=== PATIENT | female | born 1950 | race Caucasian/White ===

== ENCOUNTER 2019-08-13 15:56 | Inpatient (IN) ==
[2019-08-13] MEDS ORDERED: ONDANSETRON INJ 2 MG/ML 2 ML VIAL IV STA (16:58)
[2019-08-13] MEDS ORDERED: MoRPHine SULFATE 4 MG/ML 1 ML CARP\\VIAL IV STA (16:58)
[2019-08-13 17:28] LABS: iSTAT Creatinine 0.9 mg/dl (0.6-1.3); iSTAT Hemoglobin 12.2 g/dl (12.0-16.0); iSTAT Ionized Calcium 1.02 mmol/l (1.12-1.32); iSTAT Potassium 4.3 mEq/L (3.3-5.0)
[2019-08-13 17:29] LABS: Basophils # (auto) 0.07 K/uL (0-0.2); Basophils % (auto) 0.8 %; Eosinophils % (auto) 2.2 %; Hematocrit (blood only) 34.7 % (37-47); Immature Granulocytes # (auto) 0.04 K/uL (0.00-0.02); Immature Granulocytes % (auto) 0.4 %; Lymphocytes # (auto) 1.35 K/uL (1.2-3.4); Mean Corpuscular Hemoglobin 30.9 pg (25-34); Mean Corpuscular Hgb Conc 34.6 g/dL (32-36); Mean Corpuscular Volume 89.4 fL (80-100); Mean Platelet Volume 8.8 fL (7.4-10.4); Monocytes # (auto) 0.98 K/uL (0.11-0.59); Monocytes % (auto) 10.9 %; Neutrophils # (auto) 6.38 K/uL (1.4-6.5); Neutrophils % (auto) 70.7 %; Platelet Count 622 K/uL (130-400); RDW Coefficient of Variation 14.8 % (11.5-14.5); RDW Standard Deviation 48.3 fL (36.4-46.3); Red Blood Count 3.88 M/uL (4.2-5.4); White Blood Count 9.02 K/uL (4.8-10.8)
[2019-08-13 17:49] LABS: Alanine Aminotransferase 22 U/L (12-78); Albumin Level 3.2 gm/dl (3.4-5.0); Aspartate Aminotransferase 26 U/L (15-37); Blood Urea Nitrogen 18 mg/dl (7-18); Calcium 10.2 mg/dl (8.5-10.1); Carbon Dioxide 25 mmol/L (21-32); Chloride 102 mmol/L (98-107); Est GFR (African American) 66.6; Est GFR (Non-African American) 57.4; Glucose 82 mg/dl (70-99); Lipase 198 U/L (73-393); Potassium 4.2 mmol/L (3.5-5.1); Sodium 135 mmol/L (136-145)
[2019-08-13 17:51] LABS: Albumin Globulin Ratio 0.7 (0.9-2); Alkaline Phosphatase 227 U/L (45-117); Bilirubin,Total 0.5 mg/dl (0.2-1); Globulin 4.6 gm/dl (2.5-4.0); Total Protein 7.8 gm/dl (6.4-8.2)
[2019-08-13] MEDS ORDERED: IOVERSOL 100ml IV PRN (18:01)
--- NOTE | 2019-08-13 18:20 | CT Scan Report ---
CT SCAN OF THE LEFT TIBIA AND FIBULA WITH IV CONTRAST CLINICAL HISTORY: Left leg pain and swelling. Clinical concern for abscess. COMPARISON STUDY: No priors. TECHNIQUE: Following the IV administration of 92 cc of Optiray 320, CT scan of the left tibia and fib tylor is performed from the knee joint to the ankle. Images are reviewed in the axial, sagittal, and co yovany planes. IV contrast was administered without complication. A dose lowering technique was utiliz ed adhering to the principles of ALARA. CT DOSE: 272.05 mGy.cm FINDINGS: The skeletal structures are osteopenic. There is no evidence of tibial or fibular fracture. No bony erosion or periostitis is identified. The knee and ankle joints appear maintained noting deg enerative change. There is a knee joint effusion. There is diffuse soft tissue edema and trace subcut aneous fluid present throughout the left calf. No organized fluid collection is seen to indicate absc ess. No subcutaneous gas is seen. The Achilles tendon appears intact. A popliteal cyst measures up to 4.5 cm. The regional musculature is normal in appearance. The visualized left lower extremity arteri es are patent. IMPRESSION: 1. No acute bony abnormality is identified involving the left tibia or fibula. 2. There is diffuse soft tissue edema throughout the left lower extremity. Correlate clinically for e vidence of cellulitis. 3. No organized fluid collection is seen to indicate abscess. 4. Knee joint effusion and popliteal cyst. Electronically signed by: Bayron Dash M.D. 08/13/2019 6:18 PM
[2019-08-13] MEDS ORDERED: DAPTOmycin 300 MG in SYRINGE 0 ML IV STA (18:21)
[2019-08-13] MEDS ORDERED: MoRPHine SULFATE 2 MG/ML CARP IV STA (20:19)
--- NOTE | 2019-08-13 23:10 | History & Physical Report ---
Date of Service August 13, 2019 Assessment & Plan (1) Cellulitis of left leg: Admit IV daptomycin Infectious diseases consult cold compress prn left lower leg. DVT prophylaxis = Lovenox, held SCDs due to painful area on lower leg. (2) Failure of outpatient treatment: Did have IV Zosyn and IV Vanco at outlying hospital has been taking oral Clindamycin. (3) Immunocompromised patient: Patient takes Arava and Benlysta (4) Lupus (systemic lupus erythematosus): (5) HTN (hypertension): Continue triamterene/HCTZ (6) Duodenal ulcer: Continue pantoprazole Regular diet ordered. History of Present Illness 69 y/o female presented to the ED with left lower leg pain and redness. She reports that a week prior, she was admitted to [facility] with epigastric pain and also LLE cellulitis. She was found to have multiple duodenal ulcers and was started on pantoprazole (to which she has already noticed improvement). The cellulitis was, according to daughter, treated with IV Zosyn and IV Vanco. Upon discharge, the patient noted improved swelling and pain in the leg, but not improvement in redness. She was treated as outpatient with clindamycin and has noticed even further increase and erythema and sharp stabbing/burning pain. No F/C, cough, SOB, chest pain, N/V, or lightheadedness. She does have chronic intermittent loose stools to which there has been no change. Primary Care Provider: Kanika Bernard Allergies Allergy/AdvReac Type Severity Reaction Status Date / Time Sulfa (Sulfonamide Allergy Severe Rash and Unverified 08/13/19 17:58 Antibiotics) extremity swelling codeine AdvReac Severe Nausea Unverified 08/13/19 17:59 adhesive AdvReac Intermediate Rash Unverified 08/13/19 17:59 Home Medications Home Medications Medication Instructions Recorded Confirmed Type Medical Marijuana 1 tab SUBLINGUAL DAILY PRN 08/13/19 08/13/19 History flwjhji-nwgdtgfeoxpls-shffbsrm 2 tab PO Q6H PRN 08/13/19 08/13/19 History [Excedrin Migraine] belimumab [Benlysta] 0 mg SUBCUT Q4WK 08/13/19 08/13/19 History calcium carbonate-vitamin D3 1 tab PO QAM 08/13/19 08/13/19 History [Calcium 600 + D(3)] clindamycin HCl 300 mg PO TID 08/13/19 08/13/19 History duloxetine 60 mg PO QAM 08/13/19 08/13/19 History folic acid 3 mg PO QAM 08/13/19 08/13/19 History leflunomide [Arava] 20 mg PO QAM 08/13/19 08/13/19 History melatonin 10 mg PO HS 08/13/19 08/13/19 History ndpimwff-fzg-iyzq-FA-lutein 1 tab PO DAILY 08/13/19 08/13/19 History [Centrum Silver Women] pantoprazole 40 mg PO QAM 08/13/19 08/13/19 History potassium chloride 20 meq PO TID 08/13/19 08/13/19 History triamterene-hydrochlorothiazid 1 cap PO QAM 08/13/19 08/13/19 History Past Med/Surg History Medical History Basal cell carcinoma Duodenal ulcer disease HTN (hypertension) Lupus Squamous cell skin cancer Surgical History History of skin surgery Family History Other No pertinent family history Social History Feels Safe at Home: Yes Smoking Status: Former smoker Review of Systems Review of Systems: Constitutional- no fever; no weight loss Eyes- no acute visual changes ENT- no sinus drainage; no pharyngitis Pulmonary- no cough, no wheezing, no shortness of breath Cardiac- no chest pain, no palpitations, no orthopnea, no dependent edema GI- As in HPI - no dysuria, no hematuria Musculoskeletal- no arthralgias, no myalgias Derm- no rashes, + diffuse itching which she felt is from antibiotic. Hematologic- no unusual bruising, no unusual bleeding Lymphatics- no adenopathy Endocrine- no polyuria or polydipsia; no heat or cold intolerance Neuro- no headaches, no focal neurologic symptoms Psych- no anxiety, no depression Physical Exam Physical Exam: General- adult female, NAD Head- atraumatic Eyes- PERRL, EOMI, anicteric ENT- oropharynx clear Neck- supple, no JVD, no adenopathy, no thyromegaly. Lungs- CTA b/l no R/R/W Heart- regular rhythm; no murmur, no gallop, no rub appreciated Abdomen- normal bowel sounds, soft, nontender. Extremities- no pretibial edema, erythema of the left lower leg between knee and over ankle. + blistering, No open areas. tender to touch. 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 Skin- warm & dry, except for left lower leg as in EXt. Results & Data Vital Signs (Past 12 Hours) Vital Signs Temp Pulse Pulse Resp BP BP Pulse Ox 08/13/19 21:17 88 18 118/75 97 08/13/19 20:26 82 20 95 08/13/19 18:56 80 18 123/67 98 08/13/19 17:12 75 16 148/61 H 100 08/13/19 16:13 36.7 C 88 20 106/67 96 Laboratory Results Laboratory Results WBC 9.02 K/uL (4.8-10.8) 08/13/19 17:19 RBC 3.88 M/uL (4.2-5.4) L 08/13/19 17:19 Hgb 12.0 g/dL (12.0-16.0) 08/13/19 17:19 POC Hgb 12.2 g/dl (12.0-16.0) 08/13/19 17:16 Hct 34.7 % (37-47) L 08/13/19 17:19 POC Hct 36 % (37-47) L 08/13/19 17:16 MCV 89.4 fL (80-100) 08/13/19 17:19 MCH 30.9 pg (25-34) 08/13/19 17:19 MCHC 34.6 g/dL (32-36) 08/13/19 17:19 RDW Std Deviation 48.3 fL (36.4-46.3) H 08/13/19 17:19 RDW Coeff of Micheline 14.8 % (11.5-14.5) H 08/13/19 17:19 Plt Count 622 K/uL (130-400) H 08/13/19 17:19 MPV 8.8 fL (7.4-10.4) 08/13/19 17:19 Immature Gran % (Auto) 0.4 % 08/13/19 17:19 Neut % (Auto) 70.7 % 08/13/19 17:19 Lymph % (Auto) 15.0 % 08/13/19 17:19 Nance % (Auto) 10.9 % 08/13/19 17:19 Eos % (Auto) 2.2 % 08/13/19 17:19 Baso % (Auto) 0.8 % 08/13/19 17:19 Immature Gran # (Auto) 0.04 K/uL (0.00-0.02) H 08/13/19 17:19 Neut # (Auto) 6.38 K/uL (1.4-6.5) 08/13/19 17:19 Lymph # (Auto) 1.35 K/uL (1.2-3.4) 08/13/19 17:19 Nance # (Auto) 0.98 K/uL (0.11-0.59) H 08/13/19 17:19 Eos # (Auto) 0.20 K/uL (0-0.5) 08/13/19 17:19 Baso # (Auto) 0.07 K/uL (0-0.2) 08/13/19 17:19 POC Sodium 135 mEq/L (135-144) 08/13/19 17:16 Sodium 135 mmol/L (136-145) L 08/13/19 17:19 POC Potassium 4.3 mEq/L (3.3-5.0) 08/13/19 17:16 Potassium 4.2 mmol/L (3.5-5.1) 08/13/19 17:19 POC Chloride 101 mEq/L (101-112) 08/13/19 17:16 Chloride 102 mmol/L (98-107) 08/13/19 17:19 Carbon Dioxide 25 mmol/L (21-32) 08/13/19 17:19 POC Total CO2 25 mEq/l (24-31) 08/13/19 17:16 Anion Gap 8.0 (3-11) 08/13/19 17:19 POC Anion Gap 15.0 mmol/L (16-25) L 08/13/19 17:16 POC BUN 18 mg/dl (7-18) 08/13/19 17:16 BUN 18 mg/dl (7-18) 08/13/19 17:19 Creatinine 1.00 mg/dl (0.6-1.2) 08/13/19 17:19 POC Creatinine 0.9 mg/dl (0.6-1.3) 08/13/19 17:16 Est Cr Clr Drug Dosing Not Reportable 08/13/19 17:19 Est GFR ( Amer) 66.6 08/13/19 17:19 Est GFR (Non-Af Amer) 57.4 08/13/19 17:19 BUN/Creatinine Ratio 18.0 (10-20) 08/13/19 17:19 Glucose 82 mg/dl (70-99) 08/13/19 17:19 POC Glucose (other) 86 mg/dl (70-99) 08/13/19 17:16 Calcium 10.2 mg/dl (8.5-10.1) H 08/13/19 17:19 POC Ioniz Calcium Mayda 1.02 mmol/l (1.12-1.32) L 08/13/19 17:16 Total Bilirubin 0.5 mg/dl (0.2-1) 08/13/19 17:19 AST 26 U/L (15-37) 08/13/19 17:19 ALT 22 U/L (12-78) 08/13/19 17:19 Alkaline Phosphatase 227 U/L (45-117) H 08/13/19 17:19 Total Protein 7.8 gm/dl (6.4-8.2) 08/13/19 17:19 Albumin 3.2 gm/dl (3.4-5.0) L 08/13/19 17:19 Globulin 4.6 gm/dl (2.5-4.0) H 08/13/19 17:19 Albumin/Globulin Ratio 0.7 (0.9-2) L 08/13/19 17:19 Lipase 198 U/L (73-393) 08/13/19 17:19 Code Status & VTE Plan VTE Prophylaxis Plan VTE Prophylaxis will be ordered: Yes PG Care Time/CCT Total # of Minutes Spent Total Time Spent: 65 Total Time Spent with Patient: Total time spent is greater than 50% in coord ination of care (as documented) at patient's floor/unit and/or counseling patient:
--- NOTE | 2019-08-13 23:40 | Emergency Department Note ---
Entered by Nick Ji acting as a scribe for Jung Starks MD History of Present Illness General Chief complaint: Swelling/Edema to Extremity Stated complaint: LEGS SWELLING, PAIN AND REDNESS, REFERRED BY DR Jacobsen Seen by Provider: 08/13/19 16:42 Source: patient History of Present Illness Onset (ago): week(s) 2 Location: lower extremity and left Pain Consistency: + constant Maximum Pain Intensity: 9 Quality: + other (swelling, redness) Associated symptoms: + denies other symptoms (trouble breathing, vomiting); no chest pain The patient is a 69 y/o female who presents to the ED w/ CC of constant swelling, redness, and pain to her left lower extremity beginning 2 weeks ago. The patient states she was evaluated in [place] ER on Aug 02 and then transferred to [place] for a possible biliary stone. She reports she had abdominal pain and vomiting in addition to her cellulitis on her left leg. The patient notes she was diagnosed with several gastric ulcers and cellulitis of the lower leg. She states she was on IV Zosyn and IV Vancomycin during the four days in the hospital. She notes she also had two ultrasounds, one in [place] and then another in [facility], that did not show a blood clot. The patient reports she was discharged on oral clindamycin, and she was not given pain medication. She notes she is still having severe pain, and the swelling and redness has not improved. She was seen by a PA today and there was some concern for an abscess due to fluctuance and she was sent here for evaluation. She states she still has severe pain to the touch, and her symptoms started on the with itchiness to her lower leg. The patient reports a history of lupus and takes IV Benlysta. She notes she also has a history of a skin cancer on her left lower extremity in January that took five months to heal. The patient denies chest pain, trouble breathing, vomiting, and a history of DM. Home Medications Home Medications Medication Instructions Recorded Confirmed Type Medical Marijuana 1 tab SUBLINGUAL DAILY PRN 08/13/19 08/13/19 History gmmzhem-oieyxfmulozwv-pviannim 2 tab PO Q6H PRN 08/13/19 08/13/19 History [Excedrin Migraine] belimumab [Benlysta] 0 mg SUBCUT Q4WK 08/13/19 08/13/19 History calcium carbonate-vitamin D3 1 tab PO QAM 08/13/19 08/13/19 History [Calcium 600 + D(3)] clindamycin HCl 300 mg PO TID 08/13/19 08/13/19 History duloxetine 60 mg PO QAM 08/13/19 08/13/19 History folic acid 3 mg PO QAM 08/13/19 08/13/19 History leflunomide [Arava] 20 mg PO QAM 08/13/19 08/13/19 History melatonin 10 mg PO HS 08/13/19 08/13/19 History yzdnujcj-rnd-rwpl-FA-lutein 1 tab PO DAILY 08/13/19 08/13/19 History [Centrum Silver Women] pantoprazole 40 mg PO QAM 08/13/19 08/13/19 History potassium chloride 20 meq PO TID 08/13/19 08/13/19 History triamterene-hydrochlorothiazid 1 cap PO QAM 08/13/19 08/13/19 History Allergies Allergy/AdvReac Type Severity Reaction Status Date / Time Sulfa (Sulfonamide Allergy Severe Rash and Unverified 08/13/19 17:58 Antibiotics) extremity swelling codeine AdvReac Severe Nausea Unverified 08/13/19 17:59 adhesive AdvReac Intermediate Rash Unverified 08/13/19 17:59 Past Med/Surg History Medical History Basal cell carcinoma Duodenal ulcer disease HTN (hypertension) Lupus Squamous cell skin cancer Surgical History History of skin surgery Family History Other No pertinent family history Social History Feels Safe at Home: Yes Smoking Status: Former smoker Review of Systems See HPI for pertinent positives & negatives. and A total of 10 systems reviewed and were otherwise negative Physical Exam Vital Signs Vital Signs - 24 hr 08/13/19 16:13 08/13/19 17:12 08/13/19 18:56 Temperature 36.7 C Temperature Source Oral Sepsis Recent Fever Within 48 Hours No Sepsis Action Taken by Nursing No Action Required Pulse Rate 88 Pulse Rate [Finger] 75 80 Respiratory Rate 20 16 18 Respiratory Effort / Characteristics Non-Labored Spontaneous Respiratory Depth Normal Blood Pressure 106/67 Blood Pressure [Right Arm] 148/61 H 123/67 Blood Pressure Mean 80 Blood Pressure Mean [Right Arm] 90 85 Blood Pressure Position Sitting Pulse Oximetry 96 100 98 Oxygen Delivery Method Room Air Room Air Room Air 08/13/19 20:26 08/13/19 21:17 08/13/19 22:56 Temperature Temperature Source Sepsis Recent Fever Within 48 Hours Sepsis Action Taken by Nursing Pulse Rate Pulse Rate [Finger] 82 88 76 Respiratory Rate 20 18 20 Respiratory Effort / Characteristics Respiratory Depth Blood Pressure Blood Pressure [Right Arm] 118/75 117/68 Blood Pressure Mean Blood Pressure Mean [Right Arm] 89 84 Blood Pressure Position Pulse Oximetry 95 97 95 Oxygen Delivery Method Room Air Room Air Room Air 08/13/19 23:25 Temperature Temperature Source Sepsis Recent Fever Within 48 Hours Sepsis Action Taken by Nursing Pulse Rate 80 Pulse Rate [Finger] Respiratory Rate 18 Respiratory Effort / Characteristics Respiratory Depth Blood Pressure 106/75 Blood Pressure [Right Arm] Blood Pressure Mean Blood Pressure Mean [Right Arm] Blood Pressure Position Pulse Oximetry 96 Oxygen Delivery Method Room Air Constitutional: Vital signs reviewed. Eyes: Pupils are equal round reactive to light. Conjunctiva are noninjected. ENT: Pharynx is clear without erythema or exudate. Mucous membranes are moist. Neck supple without meningeal signs. Respiratory: Clear to auscultation bilaterally. Breath sounds are equal bilaterally. Cardiovascular: Regular rate and rhythm. No rubs or gallops. GI: Soft, nondistended and nontender. Bowel sounds are present. Musculoskeletal: Left lower leg: Exquisite tenderness to mild palpation of the left lower leg with diffuse erythema. No crepitus. No fluctuance. Intact DP pulse. Integumentary: No cyanosis. Neurological: The patient is awake and alert. No focal deficits. Psychiatric: Normal affect. Course 164: Past medical records reviewed. The patient was evaluated in room C11B. A complete history and physical exam was performed. 1842: Upon reevaluation, the patient is resting comfortably. I discussed laboratory and radiographic results with her. She verbalized agreement of the treatment plan. The patient will be evaluated for further management and care. 1903: I reviewed the patient's case with Dr. DANNY Pena Hospitalist. She will evaluate the patient for further management. Administered Medications Diphenhydramine HCl (Benadryl Capsule) 25 mg PO Q6H PRN PRN Reason: Itching Stop: 09/12/19 21:48 Last Admin: 08/13/19 22:18 Dose: 25 mg Documented by: [id number] Ioversol (Optiray 320 100ml) 92 ml IV ONCE PRN PRN Reason: Interaction Checking Stop: 08/17/19 18:00 Last Admin: 08/13/19 18:02 Dose: 92 ml Documented by: [id number] Discontinued Medications Daptomycin 300 mg/ Syringe 6 mls @ 3 mls/min IV NOW STA; Protocol Stop: 08/13/19 18:22 Last Admin: 08/13/19 18:53 Dose: 3 mls/min Documented by: [id number] Morphine Sulfate (Morphine Sulfate) 4 mg IV NOW STA Stop: 08/13/19 16:59 Last Admin: 08/13/19 17:08 Dose: 4 mg Documented by: [id number] Morphine Sulfate (Morphine Sulfate) 2 mg IV NOW STA Stop: 08/13/19 20:20 Last Admin: 08/13/19 20:24 Dose: 2 mg Documented by: [id number] Ondansetron HCl (Zofran) 4 mg IV NOW STA Stop: 08/13/19 16:59 Last Admin: 08/13/19 17:09 Dose: 4 mg Documented by: [id number] Medical Decision Making Differential Diagnosis Differential diagnosis includes: cellulitis, abscess, myositis, sepsis, osteomyelitis. Medical Records Attestation: I reviewed the patient's medical records. I did perform a limited focused review of portions of the patient's old chart on the electronic medical record. The patient has had no recent pertinent visits to this hospital. Home Medications Current Medication List: was personally reviewed by me Laboratory Data Attestation: I reviewed the patient's lab results. Result diagrams: 08/13/19 17:19 08/13/19 17:19 Lab Results 08/13/19 08/13/19 08/13/19 Range/Units 17:16 17:19 17:19 WBC 9.02 (4.8-10.8) K/uL RBC 3.88 L (4.2-5.4) M/uL Hgb 12.0 (12.0-16.0) g/dL POC Hgb 12.2 (12.0-16.0) g/dl Hct 34.7 L (37-47) % POC Hct 36 L (37-47) % MCV 89.4 (80-100) fL MCH 30.9 (25-34) pg MCHC 34.6 (32-36) g/dL RDW Std Deviation 48.3 H (36.4-46.3) fL RDW Coeff of Micheline 14.8 H (11.5-14.5) % Plt Count 622 H (130-400) K/uL MPV 8.8 (7.4-10.4) fL Immature Gran % (Auto) 0.4 % Neut % (Auto) 70.7 % Lymph % (Auto) 15.0 % Maverick % (Auto) 10.9 % Eos % (Auto) 2.2 % Baso % (Auto) 0.8 % Immature Gran # (Auto) 0.04 H (0.00-0.02) K/uL Neut # (Auto) 6.38 (1.4-6.5) K/uL Lymph # (Auto) 1.35 (1.2-3.4) K/uL Maverick # (Auto) 0.98 H (0.11-0.59) K/uL Eos # (Auto) 0.20 (0-0.5) K/uL Baso # (Auto) 0.07 (0-0.2) K/uL POC Sodium 135 (135-144) mEq/L Sodium 135 L (136-145) mmol/L POC Potassium 4.3 (3.3-5.0) mEq/L Potassium 4.2 (3.5-5.1) mmol/L POC Chloride 101 (101-112) mEq/L Chloride 102 (98-107) mmol/L Carbon Dioxide 25 (21-32) mmol/L POC Total CO2 25 (24-31) mEq/l Anion Gap 8.0 (3-11) POC Anion Gap 15.0 L (16-25) mmol/L POC BUN 18 (7-18) mg/dl BUN 18 (7-18) mg/dl Creatinine 1.00 (0.6-1.2) mg/dl POC Creatinine 0.9 (0.6-1.3) mg/dl Est Cr Clr Drug Dosing Not Reportable Est GFR ( Amer) 66.6 Est GFR (Non-Af Amer) 57.4 BUN/Creatinine Ratio 18.0 (10-20) Glucose 82 (70-99) mg/dl POC Glucose (other) 86 (70-99) mg/dl Calcium 10.2 H (8.5-10.1) mg/dl POC Ioniz Calcium Mayda 1.02 L (1.12-1.32) mmol/l Total Bilirubin 0.5 (0.2-1) mg/dl AST 26 (15-37) U/L ALT 22 (12-78) U/L Alkaline Phosphatase 227 H (45-117) U/L Total Protein 7.8 (6.4-8.2) gm/dl Albumin 3.2 L (3.4-5.0) gm/dl Globulin 4.6 H (2.5-4.0) gm/dl Albumin/Globulin Ratio 0.7 L (0.9-2) Lipase 198 (73-393) U/L Imaging Data Radiologist's Impression: Radiology results as stated below per my review and the radiologist's interpretation: CT SCAN OF THE LEFT TIBIA AND FIBULA WITH IV CONTRAST CLINICAL HISTORY: Left leg pain and swelling. Clinical concern for abscess. COMPARISON STUDY: No priors. TECHNIQUE: Following the IV administration of 92 cc of Optiray 320, CT scan of the left tibia and fibula is performed from the knee joint to the ankle. Images are reviewed in the axial, sagittal, and coronal planes. IV contrast was administered without complication. A dose lowering technique was utilized adhering to the principles of ALARA. CT DOSE: 272.05 mGy.cm FINDINGS: The skeletal structures are osteopenic. There is no evidence of tibial or fibular fracture. No bony erosion or periostitis is identified. The knee and ankle joints appear maintained noting degenerative change. There is a knee joint effusion. There is diffuse soft tissue edema and trace subcutaneous fluid present throughout the left calf. No organized fluid collection is seen to indicate abscess. No subcutaneous gas is seen. The Achilles tendon appears intact. A popliteal cyst measures up to 4.5 cm. The regional musculature is normal in appearance. The visualized left lower extremity arteries are patent. IMPRESSION: 1. No acute bony abnormality is identified involving the left tibia or fibula. 2. There is diffuse soft tissue edema throughout the left lower extremity. Correlate clinically for evidence of cellulitis. 3. No organized fluid collection is seen to indicate abscess. 4. Knee joint effusion and popliteal cyst. Electronically signed by: Bayron Dash M.D. 08/13/2019 6:18 PM Blood Pressure Blood Pressure Findings: Normal blood pressure Blood Pressure Disposition: did not require urgent referral MDM Narrative I did evaluate the patient as noted above. The patient is presenting with persistent pain and redness to the left lower extremity. She had been on vancomycin and Zosyn and then discharged later on clindamycin and Keflex. She has no improvement of her pain or redness. She is immunocompromised due to her treatment for lupus. IV access was established. The patient was placed on a continuous engine monitor. I did treat her with IV morphine and Zofran. I did order and review the patient's blood work as noted in the electronic medical record. Her white blood cell count is not elevated. She does have mild hyponatremia. Her PCPs office was concerned about an abscess. She could not tolerate an ultrasound due to her pain and so I did order a CT of the leg. I did order a CT of the left leg. I did review the images myself as well as the radiology report as described above. There is no evidence of abscess. I did treat the patient with IV daptomycin. I did reassess the patient. She states that her leg feels better but she still has pain. She was given additional morphine IV. I did recommend hospitalization. I did discuss case with hospitalist and egg caser. Impression & Plan Cellulitis of left leg, Failure of outpatient treatment, Immunocompromised patient Discharge Plan Visit Data Chief Complaint: Swelling/Edema to Extremity Stated Complaint: LEGS SWELLING, PAIN AND REDNESS, REFERRED BY DR ED Provider: Jung Starks Discharge Problem: Cellulitis of left leg, Failure of outpatient treatment, Immunocompromised patient Patient Disposition: Being Evaluated by Hospitalist Discharge Instructions Interventions: ED Discharge Assessment Last Done: 08/13/19 23:25 Forms Stand Alone Forms: My [facility] [place] Prescriptions Prescriptions: No Action clindamycin HCl 300 mg capsule 300 mg PO TID RF: 0 leflunomide [Arava] 20 mg Tablet 20 mg PO QAM RF: 0 triamterene-hydrochlorothiazid 37.5-25 mg capsule 1 cap PO QAM RF: 0 potassium chloride 20 mEq tablet,ER particles/crystals 20 meq PO TID RF: 0 pantoprazole 40 mg tablet,delayed release (DR/EC) 40 mg PO QAM RF: 0 folic acid 1 mg Tablet 3 mg PO QAM RF: 0 Excedrin Migraine 250-250-65 mg Tablet 2 tab PO Q6H PRN (Reason: Headache) RF: 0 duloxetine 60 mg capsule,delayed release(DR/EC) 60 mg PO QAM RF: 0 calcium carbonate-vitamin D3 [Calcium 600 + D(3)] 600 mg(1,500mg) -400 unit Tablet 1 tab PO QAM RF: 0 Centrum Silver Women 8 mg iron-400 mcg-300 mcg Tablet 1 tab PO DAILY RF: 0 melatonin 10 mg Tablet 10 mg PO HS RF: 0 Benlysta 200 mg/mL Syringe SUBCUT Q4WK RF: 0 Medical Marijuana 1 tab sublingual DAILY PRN (Reason: Pain) RF: 0 Referrals Referrals: Kanika Bernard [Primary Care Provider] - The scribe's documentation has been prepared under my direction and personally reviewed by me in its entirety. I confirm that the note above accurately reflects all work, treatment, procedures, and medical decision making performed by me.
[2019-08-13] MEDS ORDERED: OXYCODONE/ACETAMINOPHEN 5mg/325mg TAB PO PRN (23:53)
[2019-08-13] MEDS ORDERED: LORazepam 0.5 MG/1 ML VIAL IV PRN (23:53)
[2019-08-13] MEDS ORDERED: HYDROmorphone INJ 0.5 MG/0.5 ML SYR IV PRN (23:53)
[2019-08-14] MEDS: POTASSIUM CHLORIDE 20 MEQ TABCR PO SCH ×4 (02:02→20:36)
[2019-08-14 05:34] LABS: Hematocrit (blood only) 32.8 % (37-47); Hemoglobin 11.2 g/dL (12.0-16.0); Mean Corpuscular Hemoglobin 30.5 pg (25-34); Mean Corpuscular Hgb Conc 34.1 g/dL (32-36); Mean Corpuscular Volume 89.4 fL (80-100); Mean Platelet Volume 8.6 fL (7.4-10.4); Platelet Count 615 K/uL (130-400); RDW Standard Deviation 49.2 fL (36.4-46.3); Red Blood Count 3.67 M/uL (4.2-5.4); White Blood Count 8.29 K/uL (4.8-10.8)
[2019-08-14] MEDS: ACETAMINOPHEN 325 MG TAB PO PRN ×3 (05:41→16:51)
[2019-08-14] MEDS ORDERED: PNEUMOCOCCAL ADMINISTRATION CHARGE ONE (05:45)
[2019-08-14] MEDS ORDERED: PNEUMOCOCCAL POLYSACCHARIDES 25 MCG/0.5 ML VIAL/SYR IM ONE (05:45)
[2019-08-14 06:13] LABS: BUN Creatinine Ratio 20.8 (10-20); Calcium 9.2 mg/dl (8.5-10.1); Creatinine Clr Calc Pharmacy 54.4 ml/min; Est GFR (African American) 82.2; Est GFR (Non-African American) 70.9; Potassium 3.9 mmol/L (3.5-5.1)
[2019-08-14] MEDS: CALCIUM 600MG + VIT D 400 IU TAB PO SCH (08:23)
[2019-08-14] MEDS: CEROVITE ADV FORMULA TAB PO SCH (08:23)
[2019-08-14] MEDS: PANTOprazole 40 MG TAB PO SCH (08:23)
[2019-08-14] MEDS: DULOXETINE HCL 60 MG CAP PO SCH (08:23)
[2019-08-14] MEDS: LEFLUNOMIDE 10 MG TAB PO SCH (08:23)
[2019-08-14] MEDS: FOLIC ACID 1 MG TAB PO SCH (08:23)
[2019-08-14] MEDS: TRIAMTERENE/HCTZ 37.5/25MG CAP PO SCH (08:24)
[2019-08-14] MEDS: ENOXAPARIN INJ 40 MG/0.4 ML SYR SQ SCH (08:26)
--- NOTE | 2019-08-14 08:28 | Infectious Disease Consult ---
Date of Consultation August 14, 2019 Assessment & Plan (1) Cellulitis of left leg: Patient with persistent left lower extremity erythema following treatment for cellulitis. Certainly there is a significant component of venous stasis dermatitis which may be contributing to persistence of erythema. Will continue on present antibiotics for now, await further culture results and clinical response. Will follow. (2) Venous stasis dermatitis: History of Present Illness Reason for Consultation: Cellulitis left lower extremity Attending Physician: Bryan eMndoza DO History of Present Illness 69-year-old female with history of lupus on immunosuppressive therapy, hypertension, who was hospitalized possibly 1 week ago at [facility] for abdominal pain and left lower extremity cellulitis. She was found to have multiple duodenal ulcers on endoscopy, treated with pantoprazole with slow improvement. She was given vancomycin and Zosyn for her cellulitis with improvement, discharged on clindamycin, but states that redness and pain has increased over the past few days. She is now been started empirically on IV daptomycin. No reported significant fever. Blood cultures are pending. Pain currently 2-3 out of 10 in intensity left leg. Allergies Allergy/AdvReac Type Severity Reaction Status Date / Time Sulfa (Sulfonamide Allergy Severe Rash and Unverified 08/13/19 17:58 Antibiotics) extremity swelling codeine AdvReac Severe Nausea Unverified 08/13/19 17:59 adhesive AdvReac Intermediate Rash Unverified 08/13/19 17:59 Home Medications Home Medications Medication Instructions Recorded Confirmed Type Medical Marijuana 1 tab SUBLINGUAL DAILY PRN 08/13/19 08/13/19 History jkybgsp-rvtwholnsdcdb-kfodatme 2 tab PO Q6H PRN 08/13/19 08/13/19 History [Excedrin Migraine] belimumab [Benlysta] 0 mg SUBCUT Q4WK 08/13/19 08/13/19 History calcium carbonate-vitamin D3 1 tab PO QAM 08/13/19 08/13/19 History [Calcium 600 + D(3)] clindamycin HCl 300 mg PO TID 08/13/19 08/13/19 History duloxetine 60 mg PO QAM 08/13/19 08/13/19 History folic acid 3 mg PO QAM 08/13/19 08/13/19 History leflunomide [Arava] 20 mg PO QAM 08/13/19 08/13/19 History melatonin 10 mg PO HS 08/13/19 08/13/19 History mfabosrr-udb-xmhw-FA-lutein 1 tab PO DAILY 08/13/19 08/13/19 History [Centrum Silver Women] pantoprazole 40 mg PO QAM 08/13/19 08/13/19 History potassium chloride 20 meq PO TID 08/13/19 08/13/19 History triamterene-hydrochlorothiazid 1 cap PO QAM 08/13/19 08/13/19 History Patient History Medical History Basal cell carcinoma Duodenal ulcer disease HTN (hypertension) Lupus Squamous cell skin cancer Surgical History History of skin surgery Family History Other No pertinent family history Social History Preferred Language: Romansh Communication Ability: Effective Auriculotherapist Required: No Beliefs That Will Affect Care: None Current Living Situation: Spouse Feels Safe at Home: Yes Smoking Status: Former smoker Hx Alcohol Use: Yes Alcohol type: wine Hx Substance Use: No Review of Systems Review of Systems: All systems reviewed & are unremarkable except as noted in HPI & below Physical Exam Constitutional: WD/WN, vitals as above comfortable; no acute distress Eyes: PERRL, conjunctivae normal, anicteric sclerae ENMT: external ear and nose normal, oropharynx normal Neck: trachea midline, no thyromegaly neck nontender Respiratory: normal respiratory effort, lungs clear to auscultation normal percussion; does not use accessory muscles Cardiovascular: Rate/Rhythm: regular rate and regular rhythm Heart Sounds: normal S1 and normal S2; no gallop, no murmur and no cardiac rub Vessels: normal peripheral pulses; no JVD Gastrointestinal (Abdomen): normal bowel sounds, soft, nontender, no hepatosplenomegaly Musculoskeletal: no cyanosis or clubbing, extremities motor strength 5/5 Spine: thoracic spine normal to inspection and lumbar spine normal to inspection; no cervical spinal tenderness Skin: normal turgor and + erythema (Left lower extremity below the knee, significant venous stasis dermatitis present) Neurologic: patellar DTR's 2+ bilat, sensation intact no focal motor deficits Psychiatric: A+Ox3, euthymic affect Orientation: cooperative Lymphatic: no cervical or axillary lymphadenopathy no inguinal lymphadenopathy Results & Data Vital Signs (Past 12 Hours) Vital Signs Temp Pulse Pulse Resp BP BP Pulse Ox 08/14/19 06:59 36.6 C 70 16 117/73 97 08/13/19 23:45 36.7 C 77 18 138/79 96 08/13/19 23:25 80 18 106/75 96 08/13/19 22:56 76 20 117/68 95 08/13/19 21:17 88 18 118/75 97 08/13/19 20:26 82 20 95 Laboratory Results Short CBC 08/13/19 08/14/19 Range/Units 17:19 04:49 WBC 9.02 8.29 (4.8-10.8) K/uL Hgb 12.0 11.2 L (12.0-16.0) g/dL Hct 34.7 L 32.8 L (37-47) % Plt Count 622 H 615 H (130-400) K/uL BMP 08/13/19 08/14/19 17:19 04:49 Sodium 135 L 136 Potassium 4.2 3.9 Chloride 102 103 Carbon Dioxide 25 27 BUN 18 17 Creatinine 1.00 0.84 Glucose 82 82 Calcium 10.2 H 9.2 Liver Function 08/13/19 Range/Units 17:19 Total Bilirubin 0.5 (0.2-1) mg/dl AST 26 (15-37) U/L ALT 22 (12-78) U/L Alkaline Phosphatase 227 H (45-117) U/L Albumin 3.2 L (3.4-5.0) gm/dl Diagnostic Findings Ordering Phy: Jung Starks MD cc: ~ CT SCAN OF THE LEFT TIBIA AND FIBULA WITH IV CONTRAST CLINICAL HISTORY: Left leg pain and swelling. Clinical concern for abscess. COMPARISON STUDY: No priors. TECHNIQUE: Following the IV administration of 92 cc of Optiray 320, CT scan of the left tibia and fibula is performed from the knee joint to the ankle. Images are reviewed in the axial, sagittal, and coronal planes. IV contrast was administered without complication. A dose lowering technique was utilized adhering to the principles of ALARA. CT DOSE: 272.05 mGy.cm FINDINGS: The skeletal structures are osteopenic. There is no evidence of tibial or fibular fracture. No bony erosion or periostitis is identified. The knee and ankle joints appear maintained noting degenerative change. There is a knee joint effusion. There is diffuse soft tissue edema and trace subcutaneous fluid present throughout the left calf. No organized fluid collection is seen to indicate abscess. No subcutaneous gas is seen. The Achilles tendon appears intact. A popliteal cyst measures up to 4.5 cm. The regional musculature is normal in appearance. The visualized left lower extremity arteries are patent. IMPRESSION: 1. No acute bony abnormality is identified involving the left tibia or fibula. 2. There is diffuse soft tissue edema throughout the left lower extremity. Correlate clinically for evidence of cellulitis. 3. No organized fluid collection is seen to indicate abscess. 4. Knee joint effusion and popliteal cyst. Electronically signed by: Bayron Dash M.D. 08/13/2019 6:18 PM Dictated: 08/13/19 181 Transcribed: 08/13/191812 PG Care Time/CCT Total # of Minutes Spent Total Time Spent with Patient: Total time spent is greater than 50% in coordination of care (as documented) at patient's floor/unit and/or counseling patient:
[2019-08-14] MEDS: MoRPHine SULFATE 2 MG/ML CARP IV PRN ×2 (08:30→20:41)
[2019-08-14] MEDS: ONDANSETRON INJ 2 MG/ML 2 ML VIAL IV PRN (16:51)
--- NOTE | 2019-08-14 17:39 | Hospitalist Progress Note ---
Date of Service August 14, 2019 Assessment & Plan (1) Cellulitis of left leg: Continue daptomycin IV Follow demarcation lines Appreciate infectious diseases consult cold compress prn left lower leg. DVT prophylaxis = Lovenox (2) Failure of outpatient treatment: Patient had IV Zosyn and IV Vanco at [facility] has been taking oral Clindamycin. (3) Immunocompromised patient: Patient takes Arava and Benlysta (4) Lupus (systemic lupus erythematosus): Stable at this point Present on Admission?: Yes (5) HTN (hypertension): Continue triamterene/HCTZ (6) Duodenal ulcer: Continue pantoprazole Regular diet ordered. Subjective Patient seen and examined at the bedside. She reports left lower extremity cellulitis swelling and redness that has been ongoing for several weeks and it was since her admission at [facility] for epigastric pain and left lower extremity cellulitis. Said she was on clindamycin as an outpatient but erythema swelling and pain did not improve. Patient denies fever, chills, chest pain, shortness of breath, abdominal pain, frequency, urgency. Her appetite is somewhat okay. Review of Systems Review of Systems: All systems reviewed & are unremarkable except as noted in HPI & below Physical Exam Constitutional: WD/WN, vitals as above well developed Eyes: PERRL, conjunctivae normal, anicteric sclerae ENMT: external ear and nose normal, oropharynx normal Neck: trachea midline, no thyromegaly Respiratory: normal respiratory effort, lungs clear to auscultation Cardiovascular: RRR, no murmur, no edema Vessels: dorsalis pedis pulses present Gastrointestinal (Abdomen): normal bowel sounds, soft, nontender, no hepatosplenomegaly Musculoskeletal: Left lower extremity: Erythema swelling below the knee down to the ankle circular. Skin: no rashes, warm and dry Neurologic: patellar DTR's 2+ bilat, sensation intact Psychiatric: A+Ox3, euthymic affect Lymphatic: no cervical or axillary lymphadenopathy Results & Data Vital Signs (Past 12 Hours) Vital Signs Temp Pulse Resp BP Pulse Ox 08/14/19 15:02 36.8 C 75 16 92/60 L 97 08/14/19 06:59 36.6 C 70 16 117/73 97 PG Care Time/CCT Total # of Minutes Spent Total Time Spent with Patient: Total time spent is greater than 50% in coordination of care (as documented) at patient's floor/unit and/or counseling patient:
[2019-08-14] MEDS: DAPTOmycin 200 MG in SYRINGE 0 ML IV SCH (17:54)
[2019-08-14] MEDS ORDERED: DAPTOmycin 500 MG VIAL IV SCH (18:30)
[2019-08-15] MEDS: ONDANSETRON INJ 2 MG/ML 2 ML VIAL IV PRN ×2 (02:12→08:28)
[2019-08-15] MEDS: MoRPHine SULFATE 2 MG/ML CARP IV PRN ×5 (02:12→21:45)
[2019-08-15] MEDS: ACETAMINOPHEN 325 MG TAB PO PRN ×4 (05:08→21:45)
[2019-08-15 05:49] LABS: Hemoglobin 11.3 g/dL (12.0-16.0); Mean Corpuscular Hemoglobin 30.8 pg (25-34); Mean Corpuscular Hgb Conc 34.2 g/dL (32-36); Mean Corpuscular Volume 89.9 fL (80-100); Mean Platelet Volume 8.7 fL (7.4-10.4); Platelet Count 596 K/uL (130-400); RDW Coefficient of Variation 14.9 % (11.5-14.5); RDW Standard Deviation 49.4 fL (36.4-46.3); Red Blood Count 3.67 M/uL (4.2-5.4); White Blood Count 7.73 K/uL (4.8-10.8)
[2019-08-15 06:13] LABS: BUN Creatinine Ratio 19.9 (10-20); Calcium 9.6 mg/dl (8.5-10.1); Creatinine Clr Calc Pharmacy 61.7 ml/min; Est GFR (African American) 95.8; Est GFR (Non-African American) 82.7; Potassium 3.8 mmol/L (3.5-5.1)
[2019-08-15] MEDS: CALCIUM 600MG + VIT D 400 IU TAB PO SCH (08:14)
[2019-08-15] MEDS: LEFLUNOMIDE 10 MG TAB PO SCH (08:14)
[2019-08-15] MEDS: DULOXETINE HCL 60 MG CAP PO SCH (08:14)
[2019-08-15] MEDS: POTASSIUM CHLORIDE 20 MEQ TABCR PO SCH ×3 (08:14→21:41)
[2019-08-15] MEDS: TRIAMTERENE/HCTZ 37.5/25MG CAP PO SCH (08:14)
[2019-08-15] MEDS: FOLIC ACID 1 MG TAB PO SCH (08:15)
[2019-08-15] MEDS: ENOXAPARIN INJ 40 MG/0.4 ML SYR SQ SCH (08:15)
[2019-08-15] MEDS: CEROVITE ADV FORMULA TAB PO SCH (08:15)
[2019-08-15] MEDS: PANTOprazole 40 MG TAB PO SCH (08:15)
[2019-08-15] MEDS: DAPTOmycin 200 MG in SYRINGE 0 ML IV SCH (17:09)
--- NOTE | 2019-08-15 17:58 | Hospitalist Progress Note ---
Date of Service August 15, 2019 Assessment & Plan (1) Cellulitis of left leg: Continue daptomycin IV Follow demarcation lines Appreciate infectious diseases consult DVT prophylaxis = Lovenox (2) Failure of outpatient treatment: [facility]. (3) Immunocompromised patient: Patient takes Arava and Benlysta (4) Lupus (systemic lupus erythematosus): Stable at this point (5) HTN (hypertension): Continue triamterene/HCTZ (6) Duodenal ulcer: Continue pantoprazole Regular diet ordered. Subjective Patient seen and examined at the bedside. Slowly improving .it appears that in 24 hours patient left lower extremity looks much less swollen. Erythema continues to be present to due to chronic venostasis and chronic changes and most likely will stay for longer. Of time which was explained to patient. Patient denies fever, chills, chest pain, shortness of breath, abdominal pain, frequency, urgency. Her appetite is somewhat okay. Review of Systems Review of Systems: All systems reviewed & are unremarkable except as noted in HPI & below Physical Exam Constitutional: WD/WN, vitals as above well developed Eyes: PERRL, conjunctivae normal, anicteric sclerae ENMT: external ear and nose normal, oropharynx normal Neck: trachea midline, no thyromegaly Respiratory: normal respiratory effort, lungs clear to auscultation Cardiovascular: RRR, no murmur, no edema Vessels: dorsalis pedis pulses present Gastrointestinal (Abdomen): normal bowel sounds, soft, nontender, no hepatosplenomegaly Skin: no rashes, warm and dry Neurologic: patellar DTR's 2+ bilat, sensation intact Psychiatric: A+Ox3, euthymic affect Lymphatic: no cervical or axillary lymphadenopathy Results & Data Vital Signs (Past 12 Hours) Vital Signs Temp Pulse Resp BP Pulse Ox 08/15/19 15:02 36.7 C 63 16 98/62 L 96 08/15/19 07:18 36.8 C 69 16 107/68 96 PG Care Time/CCT Total # of Minutes Spent Total Time Spent with Patient: Total time spent is greater than 50% in coordination of care (as documented) at patient's floor/unit and/or counseling patient:
[2019-08-16] MEDS: MoRPHine SULFATE 2 MG/ML CARP IV PRN ×8 (03:51→23:06)
[2019-08-16] MEDS: ACETAMINOPHEN 325 MG TAB PO PRN ×5 (03:54→20:53)
[2019-08-16] MEDS: POTASSIUM CHLORIDE 20 MEQ TABCR PO SCH ×3 (07:46→20:54)
[2019-08-16] MEDS: CALCIUM 600MG + VIT D 400 IU TAB PO SCH (07:46)
[2019-08-16] MEDS: ENOXAPARIN INJ 40 MG/0.4 ML SYR SQ SCH (07:46)
[2019-08-16] MEDS: LEFLUNOMIDE 10 MG TAB PO SCH (07:47)
[2019-08-16] MEDS: CEROVITE ADV FORMULA TAB PO SCH (07:47)
[2019-08-16] MEDS: TRIAMTERENE/HCTZ 37.5/25MG CAP PO SCH (07:47)
[2019-08-16] MEDS: PANTOprazole 40 MG TAB PO SCH (07:47)
[2019-08-16] MEDS: DULOXETINE HCL 60 MG CAP PO SCH (07:47)
[2019-08-16] MEDS: FOLIC ACID 1 MG TAB PO SCH (07:47)
--- NOTE | 2019-08-16 09:31 | Consultation Report ---
DATE OF CONSULTATION: 08/16/2019 ONCOLOGY CONSULTATION REASON FOR CONSULTATION: Thrombocytosis. HISTORY OF PRESENT ILLNESS: Yovani is a very pleasant 69-year-old female patient who was admitted to [facility] on 13 of August with an erythematous, painful left lower extremity. The patient reports she was admitted to [facility] in [place] with epigastric pain and left lower extremity cellulitis. She was diagnosed with multiple duodenal ulcers and started on Protonix. Cellulitis was previously treated with IV Zosyn and vancomycin. Upon discharge, the patient noted improved swelling and pain in the leg, but no improvement pertaining the erythema. She was sent out with p.o. clindamycin, but unfortunately the erythema and sharp, stabbing pain increased. She was admitted with a diagnosis of refractory cellulitis of the left lower extremity. As part of her workup, peripheral blood counts confirmed an elevated platelet count and a mild normocytic normochromic anemia. I have been asked to evaluate her for underlying thrombocytosis. The patient relates being iron deficient in the past and apparently had relationship with a nuclear technologist from [facility], Dr. Dale to be precise. She received intravenous iron, she estimates about a year and a half ago and Dr. Dale no longer follows with her. The patient offers no further complaints at bedside today. PAST MEDICAL HISTORY: Significant for systemic lupus erythematosus, squamous cell skin cancer, hypertension, peptic ulcer disease, basal cell carcinoma. She also imparts history of iron deficiency. PAST SURGICAL HISTORY: Removal of skin cancers. MEDICATIONS: Prior to admission, she utilizes medical marijuana 1 tablet sublingual daily p.r.n., Benlysta dose unknown subcutaneous 4 times weekly, clindamycin 300 mg p.o. t.i.d., duloxetine 60 mg p.o. daily, folic acid 3 mg p.o. daily, Arava 20 mg p.o. q.a.m., melatonin 10 mg p.o. at bedtime, Protonix 40 mg p.o. daily, potassium chloride 20 mEq p.o. t.i.d., triamterene/hydrochlorothiazide 1 capsule p.o. daily. ALLERGIES: SULFA, CODEINE AND ADHESIVES. FAMILY HISTORY: Mother of metastatic breast cancer. Father had heart problems. SOCIAL HISTORY: The patient is retired from [employer], worked in the business office. She is . She is a reformed smoker. She does imbibe in social level alcohol, particularly wine in selective vodkas. She also utilizes medical marijuana. REVIEW OF SYSTEMS: As per HPI, most notably for erythematous, swollen, painful left lower extremity. No fevers, chills or sweats. She is not anorexic or losing weight. SKIN: Again left lower extremity erythema. She also has history of various skin cancers which have been removed attributable to prior sun damage. HEENT: Negative for headaches, lightheadedness or dizziness. No acute visual hearing deficits. No sinus symptoms, sore throat or dysphagia. LYMPH: No history of lymphoproliferative disease. CARDIAC: No history of coronary artery disease, no angina or palpitations. PULMONARY: Negative for COPD, shortness of breath, dyspnea or orthopnea. No cough or hemoptysis. GASTROINTESTINAL: Positive for recent diagnosis of peptic ulcer disease. No current abdominal pain. No nausea, vomiting, diarrhea or constipation. She reports no hematochezia, danny rectal bleeding or melena. GENITOURINARY: No history of urinary incontinence. No hematuria, dysuria, or urinary incontinence. PSYCHIATRIC: Negative for anxiety, depression or psychoses. ENDOCRINE: Negative for diabetes mellitus or thyroid disease. NEUROLOGIC: Negative for seizure, stroke, or migraine headache. MUSCULOSKELETAL: Negative for arthralgias or myalgias. No muscle weakness. HEMATOLOGIC: Positive for thrombocytosis and normocytic normochromic anemia. PHYSICAL EXAMINATION: GENERAL: A very pleasant 69-year-old female, awake, alert and appropriate, in no acute distress. VITAL SIGNS: Temperature 36.7, pulse 66, respiratory rate 14, blood pressure 107/71. SKIN: She has a fairly large erythematous plaque encompassing her anterior left lower extremity demarcated with ink. HEENT: Head is atraumatic, normocephalic. Eyes: PERRLA, EOMI. Sclerae nonicteric. No conjunctival injection. Nares are patent without rhinorrhea or discharge. Throat is clear. Tongue is midline. Mucous membranes are moist. NECK: Supple without JVD or thyromegaly. LYMPHATICS: No cervical, supraclavicular, axillary or inguinal palpable nodes. HEART: Regular rate and rhythm. No clicks, rubs, murmurs or gallops. LUNGS: Clear to auscultation bilaterally. ABDOMEN: Soft, nontender, nondistended, without palpable hepatosplenomegaly. EXTREMITIES: No calf tenderness or swelling. Erythema is noted. NEUROLOGICALLY: She is awake, alert and oriented x3. Cranial nerves are grossly intact. No gross motor or sensory deficits are noted. LABORATORY DATA: WBC count 7730, hemoglobin 11.3, platelet count 596. Sodium 138, potassium 3.8, chloride 104, carbon dioxide 29, creatinine 0.74, BUN 15. Previous albumin measures 3.2. Globulin fraction slightly elevated at 4.6. IMPRESSION: 1. Refractory left lower extremity cellulitis. 2. Normocytic normochromic anemia. 3. Thrombocytosis. 4. Underlying history of iron deficiency. 5. Previous diagnosis of peptic ulcer disease. PLAN: The primary hospitalist service asked me to evaluate Ms. Aponte for mildly elevated platelet count and normocytic normochromic anemia. Ms. Aponte imparts a history of systemic lupus erythematosus, refractory cellulitis as well as iron deficiency, most likely brought on by a peptic ulcer disease. She received iron supplementation up to about a year to year and a half ago by nuclear technologist in [place]. She no longer follows with this physician. Iron deficiency is the most common cause of reactive thrombocytosis and iron study should be done on this admission to rule out deficiency state. Additionally, mildly concerned with her albumin and globulin levels in the setting of a normocytic normochromic anemia. SPEP with immunofixation should be performed to rule out an emerging plasma cell dyscrasia. Yovani desires to follow up with me upon discharge and most likely will have to review SPEP results which generally take several days to result. If iron deficiency is proven, would advocate a single dose of iron sucrose 300 mg intravenously during her stay. I agree with medical management otherwise and have nothing further to add. We will continue to periodically follow her during her stay. Thank you very much for allowing me to participate in her care. RADHA
[2019-08-16] MEDS: LACTOBACILLUS ACIDOPHILUS (FLORANEX) TAB PO SCH ×3 (12:01→20:54)
--- NOTE | 2019-08-16 14:06 | Infectious Disease Progress Nt ---
Date of Service August 16, 2019 Assessment & Plan (1) Cellulitis of left leg: Patient with persistent left lower extremity erythema following treatment for cellulitis. Certainly there is a significant component of venous stasis dermatitis which may be contributing to persistence of erythema. Would recommend minimum of 10 days of IV daptomycin depending on clinical response. Will discuss with all involved. (2) Venous stasis dermatitis: Subjective Patient seen in follow-up for left lower extremity cellulitis. Improving slowly on daptomycin. Remains afebrile. Pain improved. No other new complaints. Review of Systems Review of Systems: All systems reviewed & are unremarkable except as noted in HPI & below Physical Exam Constitutional: WD/WN, vitals as above comfortable; no acute distress Eyes: PERRL, conjunctivae normal, anicteric sclerae ENMT: external ear and nose normal, oropharynx normal Neck: trachea midline, no thyromegaly neck nontender Respiratory: normal respiratory effort, lungs clear to auscultation normal percussion; does not use accessory muscles Cardiovascular: Rate/Rhythm: regular rate and regular rhythm Heart Sounds: normal S1 and normal S2; no gallop, no murmur and no cardiac rub Vessels: normal peripheral pulses; no JVD Gastrointestinal (Abdomen): normal bowel sounds, soft, nontender, no hepatosplenomegaly Musculoskeletal: no cyanosis or clubbing, extremities motor strength 5/5 Spine: thoracic spine normal to inspection and lumbar spine normal to inspection; no cervical spinal tenderness Skin: normal turgor and + erythema (Left lower extremity below the knee, significant venous stasis dermatitis present) Neurologic: patellar DTR's 2+ bilat, sensation intact no focal motor deficits Psychiatric: A+Ox3, euthymic affect Orientation: cooperative Lymphatic: no cervical or axillary lymphadenopathy no inguinal lymphadenopathy Results & Data Vital Signs (Past 12 Hours) Vital Signs Temp Pulse Pulse Resp BP Pulse Ox 08/16/19 12:00 36.6 C 80 83 15 95/63 L 95 08/16/19 07:30 36.7 C 58 L 66 14 107/71 96 Laboratory Results Laboratory Results - last 48 hr 08/15/19 08/15/19 04:55 04:55 WBC 7.73 RBC 3.67 L Hgb 11.3 L Hct 33.0 L MCV 89.9 MCH 30.8 MCHC 34.2 RDW Std Deviation 49.4 H RDW Coeff of Micheline 14.9 H Plt Count 596 H MPV 8.7 Sodium 138 Potassium 3.8 Chloride 104 Carbon Dioxide 29 Anion Gap 5.0 BUN 15 Creatinine 0.74 Est Cr Clr Drug Dosing 61.7 Est GFR ( Amer) 95.8 Est GFR (Non-Af Amer) 82.7 BUN/Creatinine Ratio 19.9 Glucose 93 Calcium 9.6 Diagnostic Findings Laboratory Results - last 48 hr 08/15/19 08/15/19 04:55 04:55 WBC 7.73 RBC 3.67 L Hgb 11.3 L Hct 33.0 L MCV 89.9 MCH 30.8 MCHC 34.2 RDW Std Deviation 49.4 H RDW Coeff of Micheline 14.9 H -P-l-t- -C-o-u-n-t- - - -5-9-6- -H- -M-P-V- - - -8-.-7- -V-w-w-i-u-m- - - -1-3-8- -G-a-k-b-t-h-i-u-m- - - -3-.-8- -W-r-m-o-r-i-d-e- - - -1-0-4- -A-a-i-b-o-n- -G-q-h-x-i-d-e- - - -2-9- -A-n-i-o-n- -G-a-p- - - -5-.-0- -B-U-N- - - -1-5- -C-f-i-v-k-s-n-i-n-e- - - -0-.-7-4- -E-s-t- -C-r- -C-l-r- -D-r-u-g- -C-j-j-i-n-g- - - -6-1-.-7- -E-s-t- -G-F-R- -(-C-g-e-i-c-a-n- -A-m-e-r-)- - - -9-5-.-8- -E-s-t- -G-F-R- -(-A-y-s----A-f- -A-m-e-r-)- - - -8-2-.-7- BUN/Creatinine Ratio 19.9 Glucose 93 Calcium 9.6 Microbiology 08/13/19 17:19 Blood Aerobic Blood Culture - Preliminary No growth in Aerobic bottle after 48 hours. 08/13/19 17:19 Blood Anaerobic Blood Culture - Preliminary No growth in Anaerobic bottle after 48 hours. 08/13/19 17:19 Blood Aerobic Blood Culture - Preliminary No growth in Aerobic bottle after 48 hours. 08/13/19 17:19 Blood Anaerobic Blood Culture - Preliminary No growth in Anaerobic bottle after 48 hours. PG Care Time/CCT Total # of Minutes Spent Total Time Spent with Patient: Total time spent is greater than 50% in coordination of care (as documented) at patient's floor/unit and/or counseling patient:
--- NOTE | 2019-08-16 17:14 | Hospitalist Progress Note ---
Date of Service August 16, 2019 Assessment & Plan (1) Cellulitis of left leg: Appreciate infectious diseases consult and recommendations. Continue daptomycin IV for 10 more days. Follow demarcation lines. Follow-up inflammatory markers daily. DVT prophylaxis = Lovenox (2) Thrombocytosis: This was discussed with Dr. Masters hematology oncology. It is not clear if patient thrombus cytosis is really a result of normocytic normochromic anemia and it is reactive. He recommended iron study and SPEP which were both ordered. He also recommended if simple iron deficiency anemia to give patient iron sucrose 300 mg IV during this stay. He will follow-up with patient during this visit as well as an outpatient to review her SPEP result. Present on Admission?: Yes (3) Failure of outpatient treatment: [facility] been taking oral Cl[facility]. (4) Immunocompromised patient: Patient takes Arava and Benlysta (5) Lupus (systemic lupus erythematosus): Stable at this point (6) HTN (hypertension): Continue triamterene/HCTZ (7) Duodenal ulcer: Continue pantoprazole Regular diet ordered. Subjective Patient seen and examined at the bedside. Left lower extremity cellulitis is improving. There is still significant erythema and warmth present. Patient case was discussed with Dr. Masters hematology oncology for thrombocytosis. Patient has elevated platelets to patient at 596 at this time but in the past she also had count of 622. We wanted to rule out blood dyscrasia or any malignancy. Patient is afebrile. Patient denies fever, chills, chest pain, shortness of breath, abdominal pain, frequency, urgency, melena, dysuria, hematuria. Pain left lower extremity slowly improving. Appetite is getting b norberto. Review of Systems Review of Systems: All systems reviewed & are unremarkable except as noted in HPI & below Physical Exam Constitutional: WD/WN, vitals as above well developed Eyes: PERRL, conjunctivae normal, anicteric sclerae ENMT: external ear and nose normal, oropharynx normal Neck: trachea midline, no thyromegaly Respiratory: normal respiratory effort, lungs clear to auscultation Cardiovascular: RRR, no murmur, no edema Vessels: dorsalis pedis pulses p resent Gastrointestinal (Abdomen): normal bowel sounds, soft, nontender, no hepatosplenomegaly Skin: no rashes, warm and dry Neurologic: patellar DTR's 2+ bilat, sensation intact Psychiatric: A+Ox3, euthymic affect Lymphatic: no cervical or axillary lymphadenopathy Results & Data Vital Signs (Past 12 Hours) Vital Signs Temp Pulse Pulse Resp BP Pulse Ox 08/16/19 14:58 36.7 C 77 16 107/73 93 08/16/19 12:00 36.6 C 80 83 15 95/63 L 95 08/16/19 07:30 36.7 C 58 L 66 14 107/71 96 PG Care Time/CCT Total # of Minutes Spent Total Time Spent with Patient: Total time spent is greater than 50% in coordination of care (as documented) at patient's floor/unit and/or counseling patient:
[2019-08-16] MEDS: DAPTOmycin 200 MG in SYRINGE 0 ML IV SCH (17:42)
[2019-08-17] MEDS: ACETAMINOPHEN 325 MG TAB PO PRN ×4 (03:03→20:25)
[2019-08-17] MEDS: MoRPHine SULFATE 2 MG/ML CARP IV PRN ×6 (03:04→20:24)
[2019-08-17 05:56] LABS: Basophils % (auto) 1.1 %; Eosinophils # (auto) 0.25 K/uL (0-0.5); Eosinophils % (auto) 2.7 %; Hematocrit (blood only) 34.4 % (37-47); Hemoglobin 11.6 g/dL (12.0-16.0); Immature Granulocytes # (auto) 0.03 K/uL (0.00-0.02); Immature Granulocytes % (auto) 0.3 %; Lymphocytes # (auto) 1.45 K/uL (1.2-3.4); Lymphocytes % (auto) 15.9 %; Mean Corpuscular Hemoglobin 30.1 pg (25-34); Mean Corpuscular Hgb Conc 33.7 g/dL (32-36); Mean Corpuscular Volume 89.4 fL (80-100); Mean Platelet Volume 8.6 fL (7.4-10.4); Monocytes # (auto) 0.95 K/uL (0.11-0.59); Monocytes % (auto) 10.4 %; Neutrophils # (auto) 6.35 K/uL (1.4-6.5); Neutrophils % (auto) 69.6 %; Platelet Count 589 K/uL (130-400); RDW Coefficient of Variation 14.7 % (11.5-14.5); RDW Standard Deviation 48.4 fL (36.4-46.3); Red Blood Count 3.85 M/uL (4.2-5.4); Reticulocyte % 1.3 % (0.5-2.0); Reticulocytes # 0.05 10^6/uL (0.02-0.10); White Blood Count 9.13 K/uL (4.8-10.8)
[2019-08-17 06:28] LABS: Albumin Level 2.9 gm/dl (3.4-5.0); BUN Creatinine Ratio 20.5 (10-20); C Reactive Protein 4.67 mg/dl (0-0.29); Calcium 10.1 mg/dl (8.5-10.1); Creatinine Clr Calc Pharmacy 48.6 ml/min; Est GFR (African American) 71.7; Est GFR (Non-African American) 61.9; Potassium 3.9 mmol/L (3.5-5.1)
[2019-08-17 06:31] LABS: Albumin Globulin Ratio 0.7 (0.9-2); Bilirubin,Total 0.4 mg/dl (0.2-1); Globulin 4.3 gm/dl (2.5-4.0); Total Protein 7.2 gm/dl (6.4-8.2)
[2019-08-17 08:03] LABS: Vitamin B12 662 pg/ml (211-911)
[2019-08-17 08:04] LABS: Folate (Folic Acid) > 24.00 ng/ml (>5.38)
[2019-08-17] MEDS: PANTOprazole 40 MG TAB PO SCH (08:36)
[2019-08-17] MEDS: POTASSIUM CHLORIDE 20 MEQ TABCR PO SCH ×3 (08:36→19:40)
[2019-08-17] MEDS: TRIAMTERENE/HCTZ 37.5/25MG CAP PO SCH (08:36)
[2019-08-17] MEDS: CEROVITE ADV FORMULA TAB PO SCH (08:36)
[2019-08-17] MEDS: FOLIC ACID 1 MG TAB PO SCH (08:36)
[2019-08-17] MEDS: CALCIUM 600MG + VIT D 400 IU TAB PO SCH (08:37)
[2019-08-17] MEDS: LACTOBACILLUS ACIDOPHILUS (FLORANEX) TAB PO SCH ×4 (08:37→19:40)
[2019-08-17] MEDS: LEFLUNOMIDE 10 MG TAB PO SCH (08:37)
[2019-08-17] MEDS: DULOXETINE HCL 60 MG CAP PO SCH (08:37)
[2019-08-17] MEDS: ENOXAPARIN INJ 40 MG/0.4 ML SYR SQ SCH ×2 (08:38→08:40)
[2019-08-17] MEDS: ONDANSETRON INJ 2 MG/ML 2 ML VIAL IV PRN (09:22)
--- NOTE | 2019-08-17 10:06 | Progress Note ---
DATE: 08/17/2019 DIAGNOSES: 1. Refractory left lower extremity cellulitis. 2. Normocytic normochromic anemia. 3. Thrombocytosis (secondary). 4. Underlying history of iron deficiency. 5. Previous diagnosis of peptic ulcer disease. SUBJECTIVE: A very pleasant 69-year-old female patient seen and examined at bedside this morning. Still complains of considerable pain involving the affected lower extremity. Otherwise, I was happy to confirm. I believe her thrombocytosis is attributable to iron deficiency. We will await SPEP with immunofixation and plan on reconvening with her as an outpatient. The patient reports no difficulties otherwise. Nursing reports no overnight difficulties. OBJECTIVE: GENERAL: A very pleasant 69-year-old female in no acute distress. VITAL SIGNS: Temperature 36.8, pulse 68, respiratory rate 16, blood pressure 126/78. SKIN: Without rash or lesion with the exception of the area of erythema on her lower extremity. HEENT: Oral mucosa without erythema or ulceration. HEART: Regular rate and rhythm. LUNGS: Clear to auscultation bilaterally. ABDOMEN: Soft, nontender, nondistended. EXTREMITIES: No clubbing, cyanosis or edema. NEUROLOGICAL: Grossly intact. LABORATORY DATA: WBC count 9130, hemoglobin 11.6, platelet count 589,000. Sodium 138, potassium 3.9, chloride 103, carbon dioxide 29, creatinine 0.94, BUN 19, albumin 2.9. IMPRESSION: 1. Iron deficiency anemia. 2. Reactive thrombocytosis secondary to number 1. 3. Normocytic normochromic anemia. 4. Peptic ulcer disease by history. 5. Refractory left lower extremity cellulitis. PLAN: The patient was seen and examined at bedside today. Reviewed her most recent lab results including serum iron, which is in the deficient range. Recommend iron sucrose 300 mg intravenously today and plan on having her visit me as an outpatient within the next week or two to discuss SPEP results. Again, I do not suspect she suffers from an underlying myeloma, but certainly with an offset, her globulin and albumin fraction, the diagnosis needs to be ruled out. I believe her platelet count will retreat towards normal as her iron is replaced. I have nothing further to add today and we will continue to follow her periodically during her stay. Thank you very much for allowing me to participate in her care.
--- NOTE | 2019-08-17 16:52 | Hospitalist Progress Note ---
Date of Service August 17, 2019 Assessment & Plan (1) Cellulitis of left leg: Appreciate infectious diseases consult and recommendations. Continue daptomycin IV for 10 days. Follow demarcation lines. Follow-up inflammatory markers daily. Pain Management. DVT prophylaxis = Lovenox (2) Thrombocytosis: Appreciate hematology oncology recommendations to start iron sucrose 300 mg intravenously today. Patient will see Dr. orozco as an outpatient in a week or 2 to discuss SPEP to rule out possible an underlying myeloma. He recommended iron study and SPEP which were both ordered. (3) Failure of outpatient treatment: [facility] (4) Immunocompromised patient: Patient takes Arava and Benlysta (5) Lupus (systemic lupus erythematosus): Stable at this point (6) HTN (hypertension): Continue triamterene/HCTZ (7) Duodenal ulcer: Continue pantoprazole Regular diet ordered. Subjective Patient seen and examined at the bedside. Left lower extremity cellulitis is improving with daptomycin IV. Patient is afebrile. Patient denies fever, chills, chest pain, shortness of breath, abdominal pain, frequency, urgency, m camilla, dysuria, hematuria. Pain left lower extremity slowly improving. Appetite is getting better. Review of Systems Review of Systems: All systems reviewed & are unremarkable except as noted in HPI & below Physical Exam Constitutional: WD/WN, vitals as above well developed Eyes: PERRL, conjunctivae normal, anicteric sclerae ENMT: external ear and nose normal, oropharynx normal Neck: trachea midline, no thyromegaly Respiratory: normal respiratory effort, lungs clear to auscultation Cardiovascular: RRR, no murmur, no edema Vessels: dorsalis pedis pulses present Gastrointestinal (Abdomen): normal bowel sounds, soft, nontender, no hepatosplenomegaly Skin: no rashes, warm and dry Neurologic: patellar DTR's 2+ bilat, sensation intact Psychiatric: A+Ox3, euthymic affect Lymphatic: no cervical or axillary lymphadenopathy Results & Data Vital Signs (Past 12 Hours) Vital Signs Temp Pulse Pulse Resp BP Pulse Ox 08/17/19 14:49 36.6 C 84 16 105/73 93 08/17/19 07:00 36.8 C 68 16 126/78 96 PG Care Time/CCT Total # of Minutes Spent Total Time Spent with Patient: Total time spent is greater than 50% in coordin ation of care (as documented) at patient's floor/unit and/or counseling patient:
[2019-08-17] MEDS: DAPTOmycin 200 MG in SYRINGE 0 ML IV SCH (17:16)
[2019-08-17] MEDS ORDERED: IRON SUCROSE 300 MG in SODIUM CHLORIDE 0.9% 250 ML IV SCH (17:30)
[2019-08-18] MEDS: ACETAMINOPHEN 325 MG TAB PO PRN ×4 (01:55→20:58)
[2019-08-18] MEDS: MoRPHine SULFATE 2 MG/ML CARP IV PRN ×6 (01:55→23:31)
[2019-08-18 05:53] LABS: Basophils # (auto) 0.11 K/uL (0-0.2); Basophils % (auto) 1.7 %; Eosinophils # (auto) 0.22 K/uL (0-0.5); Eosinophils % (auto) 3.3 %; Hematocrit (blood only) 32.1 % (37-47); Hemoglobin 11.4 g/dL (12.0-16.0); Immature Granulocytes # (auto) 0.02 K/uL (0.00-0.02); Immature Granulocytes % (auto) 0.3 %; Lymphocytes # (auto) 1.59 K/uL (1.2-3.4); Lymphocytes % (auto) 24.1 %; Mean Corpuscular Hemoglobin 31.8 pg (25-34); Mean Corpuscular Hgb Conc 35.5 g/dL (32-36); Mean Corpuscular Volume 89.4 fL (80-100); Mean Platelet Volume 8.6 fL (7.4-10.4); Monocytes # (auto) 0.97 K/uL (0.11-0.59); Monocytes % (auto) 14.7 %; Neutrophils # (auto) 3.69 K/uL (1.4-6.5); Neutrophils % (auto) 55.9 %; Platelet Count 533 K/uL (130-400); RDW Coefficient of Variation 14.6 % (11.5-14.5); RDW Standard Deviation 48.4 fL (36.4-46.3); Red Blood Count 3.59 M/uL (4.2-5.4)
[2019-08-18 06:22] LABS: Albumin Globulin Ratio 0.7 (0.9-2); Albumin Level 2.9 gm/dl (3.4-5.0); Calcium 9.8 mg/dl (8.5-10.1); Creatinine Clr Calc Pharmacy 52.6 ml/min; Est GFR (African American) 78.8; Globulin 3.9 gm/dl (2.5-4.0); Potassium 4.2 mmol/L (3.5-5.1); Total Protein 6.8 gm/dl (6.4-8.2)
[2019-08-18 06:23] LABS: Bilirubin,Total 0.4 mg/dl (0.2-1); C Reactive Protein 5.79 mg/dl (0-0.29)
[2019-08-18] MEDS: DULOXETINE HCL 60 MG CAP PO SCH (08:59)
[2019-08-18] MEDS: TRIAMTERENE/HCTZ 37.5/25MG CAP PO SCH (08:59)
[2019-08-18] MEDS: PANTOprazole 40 MG TAB PO SCH (08:59)
[2019-08-18] MEDS: CALCIUM 600MG + VIT D 400 IU TAB PO SCH (09:03)
[2019-08-18] MEDS: FOLIC ACID 1 MG TAB PO SCH (09:03)
[2019-08-18] MEDS: POTASSIUM CHLORIDE 20 MEQ TABCR PO SCH ×3 (09:03→20:58)
[2019-08-18] MEDS: CEROVITE ADV FORMULA TAB PO SCH (09:03)
[2019-08-18] MEDS: LACTOBACILLUS ACIDOPHILUS (FLORANEX) TAB PO SCH ×4 (09:04→20:58)
[2019-08-18] MEDS: LEFLUNOMIDE 10 MG TAB PO SCH (09:04)
[2019-08-18] MEDS: ENOXAPARIN INJ 40 MG/0.4 ML SYR SQ SCH (09:05)
[2019-08-18] MEDS: DAPTOmycin 200 MG in SYRINGE 0 ML IV SCH (17:28)
--- NOTE | 2019-08-18 19:31 | Hospitalist Progress Note ---
Date of Service August 18, 2019 Assessment & Plan (1) Cellulitis of left leg: Appreciate infectious diseases consult and recommendations. Continue daptomycin IV for 10 days(#day 5 completed) Follow demarcation lines. Follow-up inflammatory markers daily. Pain Management. DVT prophylaxis = Lovenox Full code Disposition: Home once when 10 doses of daptomycin's are completed. Patient failed other antibiotics. (2) Thrombocytosis: Appreciate hematology oncology recommendations. Given yesterday iron sucrose [address] Masters recommendation. Patient will see as an outpatient in a week or 2 to discuss SPEP to rule out possible an underlying myeloma. SPEP result pending. (3) Failure of outpatient treatment: Patient had IV Zosyn and IV Vanco at [facility] Also she failed oral Clindamycin. (4) Immunocompromised patient: Patient takes Arava and Benlysta (5) Lupus (systemic lupus erythematosus): Stable at this point (6) HTN (hypertension): Continue triamterene/HCTZ (7) Duodenal ulcer: Continue pantoprazole Regular diet ordered. Subjective Patient seen and examined at the bedside. Left lower extremity cellulitis is improving with daptomycin IV. Patient is afebrile. Patient denies fever, chills, chest pain, shortness of breath, abdominal pain, frequency, urgency, melena, dysuria, hematuria. Pain left lower extremity slowly improving. Appe tite is getting better. Review of Systems Review of Systems: All systems reviewed & are unremarkable except as noted in HPI & below Physical Exam Constitutional: WD/WN, vitals as above well developed Eyes: PERRL, conjunctivae normal, anicteric sclerae ENMT: external ear and nose normal, oropharynx normal Neck: trachea midline, no thyromegaly Respiratory: normal respiratory effort, lungs clear to auscultation Cardiovascular: RRR, no murmur, no edema Vessels: dorsalis pedis pulses present Gastrointestinal (Abdomen): normal bowel sounds, soft, nontender, no hepatosplenomegaly Skin: no rashes, warm and dry Neurologic: patellar DTR's 2+ bilat, sensation intact Psychiatric: A+Ox3, euthymic affect Lymphatic: no cervical or axillary lymphadenopathy Results & Data Vital Signs (Past 12 Hours) Vital Signs Temp Pulse Pulse Resp BP Pulse Ox 08/18/19 14:56 36.5 C 77 16 102/68 94 08/18/19 07:50 36.6 C 72 14 103/71 98 PG Care Time/CCT Total # of Minutes Spent Total Time Spent with Patient: Total time spent is greater than 50% in coordination of care (as documented) at patient's floor/unit and/or counseling patient:
[2019-08-19] MEDS: ACETAMINOPHEN 325 MG TAB PO PRN ×3 (03:12→23:12)
[2019-08-19] MEDS: MoRPHine SULFATE 2 MG/ML CARP IV PRN ×7 (03:13→23:11)
[2019-08-19 06:02] LABS: Basophils % (auto) 1.8 %; Eosinophils # (auto) 0.23 K/uL (0-0.5); Eosinophils % (auto) 4.2 %; Hematocrit (blood only) 32.4 % (37-47); Hemoglobin 10.8 g/dL (12.0-16.0); Immature Granulocytes # (auto) 0.01 K/uL (0.00-0.02); Immature Granulocytes % (auto) 0.2 %; Lymphocytes # (auto) 1.58 K/uL (1.2-3.4); Lymphocytes % (auto) 28.9 %; Mean Corpuscular Hemoglobin 30.1 pg (25-34); Mean Corpuscular Hgb Conc 33.3 g/dL (32-36); Mean Corpuscular Volume 90.3 fL (80-100); Mean Platelet Volume 8.8 fL (7.4-10.4); Monocytes # (auto) 0.89 K/uL (0.11-0.59); Monocytes % (auto) 16.3 %; Neutrophils # (auto) 2.65 K/uL (1.4-6.5); Neutrophils % (auto) 48.6 %; Platelet Count 476 K/uL (130-400); RDW Coefficient of Variation 14.5 % (11.5-14.5); RDW Standard Deviation 48.3 fL (36.4-46.3); Red Blood Count 3.59 M/uL (4.2-5.4); White Blood Count 5.46 K/uL (4.8-10.8)
[2019-08-19 06:36] LABS: Albumin Level 2.8 gm/dl (3.4-5.0); BUN Creatinine Ratio 23.8 (10-20); C Reactive Protein 4.99 mg/dl (0-0.29); Calcium 9.9 mg/dl (8.5-10.1); Creatinine Clr Calc Pharmacy 55.8 ml/min; Est GFR (African American) 84.6; Potassium 3.7 mmol/L (3.5-5.1)
[2019-08-19 06:37] LABS: Albumin Globulin Ratio 0.7 (0.9-2); Bilirubin,Total 0.4 mg/dl (0.2-1); Globulin 3.9 gm/dl (2.5-4.0); Total Protein 6.7 gm/dl (6.4-8.2)
[2019-08-19] MEDS: LACTOBACILLUS ACIDOPHILUS (FLORANEX) TAB PO SCH ×4 (08:35→20:20)
[2019-08-19] MEDS: ENOXAPARIN INJ 40 MG/0.4 ML SYR SQ SCH (08:36)
[2019-08-19] MEDS: LEFLUNOMIDE 10 MG TAB PO SCH (08:36)
[2019-08-19] MEDS: DULOXETINE HCL 60 MG CAP PO SCH (08:36)
[2019-08-19] MEDS: POTASSIUM CHLORIDE 20 MEQ TABCR PO SCH ×3 (08:36→20:20)
[2019-08-19] MEDS: FOLIC ACID 1 MG TAB PO SCH (08:36)
[2019-08-19] MEDS: PANTOprazole 40 MG TAB PO SCH (08:36)
[2019-08-19] MEDS: CEROVITE ADV FORMULA TAB PO SCH (08:37)
[2019-08-19] MEDS: TRIAMTERENE/HCTZ 37.5/25MG CAP PO SCH (08:37)
[2019-08-19] MEDS: CALCIUM 600MG + VIT D 400 IU TAB PO SCH (08:37)
[2019-08-19] MEDS: DAPTOmycin 200 MG in SYRINGE 0 ML IV SCH (17:18)
--- NOTE | 2019-08-19 18:53 | Hospitalist Progress Note ---
Date of Service August 19, 2019 Assessment & Plan (1) Cellulitis of left leg: Appreciate infectious diseases consult and recommendations. Continue daptomycin IV for 10 days(#day 6 completed) Trend inflammatory markers Continue Pain Management. Disposition: Home once when 10 doses of daptomycin's are completed. Patient failed other antibiotics. (2) Thrombocytosis: Appreciate hematology oncology recommendations. Given iron sucrose [address] Masters recommendation 08/18 Patient will see as an outpatient in a week or 2 to discuss SPEP to rule out possible an underlying myeloma. SPEP result pending. (3) Failure of outpatient treatment: Patient had IV Zosyn and IV Vanco at [facility] Also she failed oral Clindamycin. (4) Immunocompromised patient: Patient takes Arava and Benlysta (5) Lupus (systemic lupus erythematosus): Stable at this point (6) HTN (hypertension): Continue triamterene/HCTZ (7) Duodenal ulcer: Continue pantoprazole Regular diet ordered. (8) DVT prophylaxis: enoxaparin Supervising Physician Co-Signing Physician Notes I have reviewed the pt chart and discussed current care with Ms. Dwain NP and agree with her assessment and plan of this pt. Subjective Ms. Aponte reports feeling that someone is stabbing her in her infected leg. She reports this comes and goes and is improved with pain medication. She otherwise has no complaints ROS Constitutional: no chills, aches, sweats or fever Respiratory: no sob,cough, sputum, or wheezing Cardiac: no chest pain, palpitations, edema, orthopnea or lightheadedness GI: no abdominal pain, nausea, vomiting, diarrhea or constipation : no dysuria or hesitancy Extremities: no joint pain or weakness Skin: no rash All other systems reviewed and negative Physical Exam Physical Exam: General: no distress Eyes: normal inspection, PERLL Respiratory: chest non tender, clear to auscultation, normal breath sounds, no respiratory distress, no accessory muscle use Cardiac: regular rate and rhythm, no rub or gallop, no murmur, no edema, no jvd GI/: active bowel sounds, no abd pain or tenderness, soft, non distended Extremities: normal range of motion, normal strength, non tender Neuro/Psych: alert and oriented x 3, normal mood and affect Skin: normal color, dry, left lower leg with scaling/dry skin Results & Data Vital Signs (Past 12 Hours) Vital Signs Temp Pulse Pulse Resp BP Pulse Ox 08/19/19 15:23 36.7 C 84 16 109/67 94 08/19/19 11:45 36.6 C 70 14 122/74 94 08/19/19 07:55 36.2 C L 66 24 110/70 94 PG Care Time/CCT Total # of Minutes Spent Total Time Spent with Patient: Total time spent is greater than 50% in coordination of care (as documented) at patient's floor/unit and/or counseling patient:
[2019-08-19 20:42] LABS: Albumin 3.1 G/DL (3.8-4.8); Alpha 1 Globulin 0.4 G/DL (0.2-0.3); Alpha 2 Globulin 1.1 G/DL (0.5-0.9); Beta-1-Globulin 0.5 G/DL (0.4-0.6); Beta-2-Globulin 0.4 G/DL (0.2-0.5); Gamma Globulin 0.6 G/DL (0.8-1.7); Monoclonal Protein Band 1 DNR G/DL (NOT DETECTED); Monoclonal Protein Band 2 DNR G/DL (NOT DETECTED); Monoclonal Protein Band 3 DNR G/DL (NOT DETECTED)
[2019-08-20] MEDS: MoRPHine SULFATE 2 MG/ML CARP IV PRN ×5 (04:32→20:23)
[2019-08-20 06:10] LABS: Creatinine Clr Calc Pharmacy 57.2 ml/min; Est GFR (African American) 87.2; Est GFR (Non-African American) 75.2
[2019-08-20] MEDS: ACETAMINOPHEN 325 MG TAB PO PRN (08:06)
[2019-08-20] MEDS: POTASSIUM CHLORIDE 20 MEQ TABCR PO SCH ×3 (08:07→20:20)
[2019-08-20] MEDS: LEFLUNOMIDE 10 MG TAB PO SCH (08:07)
[2019-08-20] MEDS: FOLIC ACID 1 MG TAB PO SCH (08:07)
[2019-08-20] MEDS: CEROVITE ADV FORMULA TAB PO SCH (08:07)
[2019-08-20] MEDS: CALCIUM 600MG + VIT D 400 IU TAB PO SCH (08:07)
[2019-08-20] MEDS: PANTOprazole 40 MG TAB PO SCH (08:08)
[2019-08-20] MEDS: DULOXETINE HCL 60 MG CAP PO SCH (08:08)
[2019-08-20] MEDS: TRIAMTERENE/HCTZ 37.5/25MG CAP PO SCH (08:08)
[2019-08-20] MEDS: LACTOBACILLUS ACIDOPHILUS (FLORANEX) TAB PO SCH ×4 (08:08→20:20)
[2019-08-20] MEDS: ENOXAPARIN INJ 40 MG/0.4 ML SYR SQ SCH (08:09)
--- NOTE | 2019-08-20 14:34 | Hospitalist Progress Note ---
Date of Service August 20, 2019 Assessment & Plan (1) Cellulitis of left leg: Appreciate infectious diseases consult and recommendations. Continue daptomycin IV for 10 days(#day 7 completed) Trend inflammatory markers Continue Pain Management - will schedule tylenol q8h Disposition: Home once 10 doses of daptomycin are completed. Patient failed other antibiotics. (2) Thrombocytosis: Appreciate hematology oncology recommendations. Given iron sucrose [address] Masters recommendation 08/18 Patient will see as an outpatient in a week or 2 to discuss SPEP to rule out possible an underlying myeloma. SPEP result pending. (3) Failure of outpatient treatment: Patient had IV Zosyn and IV Vanco at [facility] Also she failed oral Clindamycin. (4) Immunocompromised patient: Patient takes Arava and Benlysta (5) Lupus (systemic lupus erythematosus): Stable at this point (6) HTN (hypertension): Continue triamterene/HCTZ (7) Duodenal ulcer: Continue pantoprazole Regular diet ordered. (8) DVT prophylaxis: enoxaparin Subjective Ms. Aponte continues to have intermittent pain at the site of her infection but is tolerable with pain medication ROS Constitutional: no chills, aches, sweats or fever Respiratory: no sob,cough, sputum, or wheezing Cardiac: no chest pain, palpitations, edema, orthopnea or lightheadedness GI: no abdominal pain, nausea, vomiting, diarrhea or constipation : no dysuria or hesitancy Extremities: no joint pain or weakness Skin: no rash All other systems reviewed and negative Physical Exam Physical Exam: General: no distress Eyes: normal inspection, PERLL Respiratory: chest non tender, clear to auscultation, normal breath sounds, no respiratory distress, no accessory muscle use Cardiac: regular rate and rhythm, no rub or gallop, no murmur, no edema, no jvd GI/: active bowel sounds, no abd pain or tenderness, soft, non distended Extremities: normal range of motion, normal strength, non tender Neuro/Psych: alert and oriented x 3, normal mood and affect Skin: normal color, dry Results & Data Vital Signs (Past 12 Hours) Vital Signs Temp Pulse Resp BP Pulse Ox 08/20/19 11:01 36.5 C 71 14 114/78 98 08/20/19 07:19 36.6 C 69 14 120/74 97 PG Care Time/CCT Total # of Minutes Spent Total Time Spent with Patient: Total time spent is greater than 50% in coordination of care (as documented) at patient's floor/unit and/or counseling patient:
[2019-08-20] MEDS: ACETAMINOPHEN 500 MG TAB PO SCH ×2 (15:04→20:21)
[2019-08-20] MEDS: DAPTOmycin 200 MG in SYRINGE 0 ML IV SCH (17:25)
[2019-08-21] MEDS: MoRPHine SULFATE 2 MG/ML CARP IV PRN ×3 (03:26→10:46)
[2019-08-21 05:19] LABS: Basophils # (auto) 0.09 K/uL (0-0.2); Basophils % (auto) 1.7 %; Eosinophils # (auto) 0.24 K/uL (0-0.5); Eosinophils % (auto) 4.6 %; Hematocrit (blood only) 31.5 % (37-47); Hemoglobin 10.6 g/dL (12.0-16.0); Immature Granulocytes # (auto) 0.02 K/uL (0.00-0.02); Immature Granulocytes % (auto) 0.4 %; Lymphocytes # (auto) 1.43 K/uL (1.2-3.4); Lymphocytes % (auto) 27.2 %; Mean Corpuscular Hemoglobin 30.3 pg (25-34); Mean Corpuscular Hgb Conc 33.7 g/dL (32-36); Mean Platelet Volume 8.4 fL (7.4-10.4); Monocytes # (auto) 0.81 K/uL (0.11-0.59); Monocytes % (auto) 15.4 %; Neutrophils # (auto) 2.67 K/uL (1.4-6.5); Neutrophils % (auto) 50.7 %; Platelet Count 475 K/uL (130-400); RDW Coefficient of Variation 14.6 % (11.5-14.5); White Blood Count 5.26 K/uL (4.8-10.8)
[2019-08-21] MEDS: ACETAMINOPHEN 500 MG TAB PO SCH ×2 (05:30→13:00)
[2019-08-21 06:02] LABS: Albumin Level 2.8 gm/dl (3.4-5.0); BUN Creatinine Ratio 25.5 (10-20); C Reactive Protein 2.87 mg/dl (0-0.29); Calcium 9.8 mg/dl (8.5-10.1); Creatinine Clr Calc Pharmacy 62.7 ml/min; Est GFR (African American) 97.4; Potassium 3.9 mmol/L (3.5-5.1)
[2019-08-21 06:05] LABS: Albumin Globulin Ratio 0.7 (0.9-2); Bilirubin,Total 0.4 mg/dl (0.2-1); Globulin 3.8 gm/dl (2.5-4.0); Total Protein 6.6 gm/dl (6.4-8.2)
[2019-08-21] MEDS: LACTOBACILLUS ACIDOPHILUS (FLORANEX) TAB PO SCH ×4 (07:57→20:32)
[2019-08-21] MEDS: ENOXAPARIN INJ 40 MG/0.4 ML SYR SQ SCH (08:43)
[2019-08-21] MEDS: LEFLUNOMIDE 10 MG TAB PO SCH (08:44)
[2019-08-21] MEDS: TRIAMTERENE/HCTZ 37.5/25MG CAP PO SCH (08:45)
[2019-08-21] MEDS: POTASSIUM CHLORIDE 20 MEQ TABCR PO SCH ×3 (08:45→20:33)
[2019-08-21] MEDS: CEROVITE ADV FORMULA TAB PO SCH (08:45)
[2019-08-21] MEDS: DULOXETINE HCL 60 MG CAP PO SCH (08:45)
[2019-08-21] MEDS: FOLIC ACID 1 MG TAB PO SCH (08:45)
[2019-08-21] MEDS: PANTOprazole 40 MG TAB PO SCH (08:45)
[2019-08-21] MEDS: CALCIUM 600MG + VIT D 400 IU TAB PO SCH (08:45)
--- NOTE | 2019-08-21 15:03 | Hospitalist Progress Note ---
Date of Service August 21, 2019 Assessment & Plan (1) Cellulitis of left leg: Appreciate infectious diseases consult and recommendations. Discussed with ID - patient is healing very slowly and may require more than 10 days abx. Logistically she is unable to do outpatient IV abx. Will change daptomycin to oral linezolid for at least another weak. Today is day #8 of abx Discussed with pharmacy - will taper duloxetine down and then dc to allow for linezolid as they are both serotenergic medications. Duloxetine decreased from 60 mg to 30 mg for 5-7 days and then dc until linezolid is complete. ESR > 90, CRP is trending down Continue Pain Management - dc morphine - Rifle 5/325 q4h (2) Thrombocytosis: Appreciate hematology oncology recommendations. Given iron sucrose [address] Masters recommendation 08/18 Patient will see as an outpatient in a week or 2 to discuss SPEP to rule out possible an underlying myeloma. SPEP result pending. (3) Failure of outpatient treatment: Patient had IV Zosyn and IV Vanco at [facility] Also she failed oral Clindamycin. (4) Immunocompromised patient: Patient takes Arava and Benlysta (5) Lupus (systemic lupus erythematosus): Stable at this point (6) HTN (hypertension): Continue triamterene/HCTZ (7) Duodenal ulcer: Continue pantoprazole Continue Regular diet (8) DVT prophylaxis: enoxaparin Subjective Ms. Aponte continues to have pain at her cellulitis site. Overall she feels she is improving though very slowly ROS Constitutional: no chills, aches, sweats or fever Respiratory: no sob,cough, sputum, or wheezing Cardiac: no chest pain, palpitations, edema, orthopnea or lightheadedness GI: no abdominal pain, nausea, vomiting, diarrhea or constipation : no dysuria or hesitancy Extremities: no joint pain or weakness Skin: see above All other systems reviewed and negative Physical Exam Physical Exam: General: no distress Eyes: normal inspection, PERLL Respiratory: chest non tender, clear to auscultation, normal breath sounds, no respiratory distress, no accessory muscle use Cardiac: regular rate and rhythm, no rub or gallop, no murmur, no edema, no jvd GI/: active bowel sounds, no abd pain or tenderness, soft, non distended Extremities: normal range of motion, normal strength, non tender Neuro/Psych: alert and oriented x 3, normal mood and affect Skin: normal color, dry Results & Data Vital Signs (Past 12 Hours) Vital Signs Temp Pulse Resp BP Pulse Ox 08/21/19 07:19 36.4 C L 66 18 122/66 97 PG Care Time/CCT Total # of Minutes Spent Total Time Spent with Patient: Total time spent is greater than 50% in coordination of care (as documented) at patient's floor/unit and/or counseling patient:
--- NOTE | 2019-08-21 15:46 | Infectious Disease Progress Nt ---
Date of Service August 21, 2019 Assessment & Plan (1) Cellulitis of left leg: Patient with persistent left lower extremity erythema following treatment for cellulitis. Certainly there is a significant component of venous stasis dermatitis which may be contributing to persistence of erythema. Case discussed with hospitalist, given inability to use daptomycin outpatient, have recommended use of linezolid but will need to adjust and discontinue antidepressant because of potential interaction. We will continue to follow in hospital. (2) Venous stasis dermatitis: Subjective Patient seen in follow-up for lower extremity cellulitis. Overall, slowly improving, still a significant amount of pain noted. Unable to give daptomycin as outpatient. Remains afebrile. Blood cultures have been negative. Review of Systems Review of Systems: All systems reviewed & are unremarkable except as noted in HPI & below Physical Exam Constitutional: WD/WN, vitals as above comfortable; no acute distress Eyes: PERRL, conjunctivae normal, anicteric sclerae ENMT: external ear and nose normal, oropharynx normal Neck: trachea midline, no thyromegaly neck nontender Respiratory: normal respiratory effort, lungs clear to auscultation normal percussion; does not use accessory muscles Cardiovascular: Rate/Rhythm: regular rate and regular rhythm Heart Sounds: normal S1 and normal S2; no gallop, no murmur and no cardiac rub Vessels: normal peripheral pulses; no JVD Gastrointestinal (Abdomen): normal bowel sounds, soft, nontender, no hepatosplenomegaly Musculoskeletal: no cyanosis or clubbing, extremities motor strength 5/5 Spine: thoracic spine normal to inspection and lumbar spine normal to inspection; no cervical spinal tenderness Skin: normal turgor and + erythema (Left lower extremity below the knee, significant venous stasis dermatitis present) Neurologic: patellar DTR's 2+ bilat, sensation intact no focal motor deficits Psychiatric: A+Ox3, euthymic affect Orientation: cooperative Lymphatic: no cervical or axillary lymphadenopathy no inguinal lymphadenopathy Results & Data Vital Signs (Past 12 Hours) Vital Signs Temp Pulse Pulse Resp BP Pulse Ox 08/21/19 15:04 36.6 C 90 16 115/76 95 08/21/19 07:19 36.4 C L 66 18 122/66 97 Laboratory Results Short CBC 08/21/19 Range/Units 04:51 WBC 5.26 (4.8-10.8) K/uL Hgb 10.6 L (12.0-16.0) g/dL Hct 31.5 L (37-47) % Plt Count 475 H (130-400) K/uL BMP 08/21/19 04:51 Sodium 141 Potassium 3.9 Chloride 105 Carbon Dioxide 30 BUN 19 H Creatinine 0.73 Glucose 90 Calcium 9.8 Liver Function 08/21/19 Range/Units 04:51 Total Bilirubin 0.4 (0.2-1) mg/dl AST 35 (15-37) U/L ALT 33 (12-78) U/L Alkaline Phosphatase 223 H (45-117) U/L Albumin 2.8 L (3.4-5.0) gm/dl Diagnostic Findings Microbiology 08/13/19 17: Blood Aerobic Blood Culture - Final No growth in Aerobic bottle after 5 days. 08/13/19 17:19 Blood Anaerobic Blood Culture - Final No growth in Anaerobic bottle after 5 days. 08/13/19 17:19 Blood Aerobic Blood Culture - Final No growth in Aerobic bottle after 5 days. 08/13/19 17:19 Blood Anaerobic Blood Culture - Final No growth in Anaerobic bottle after 5 days. PG Care Time/CCT Total # of Minutes Spent Total Time Spent with Patient: Total time spent is greater than 50% in coordination of care (as documented) at patient's floor/unit and/or counseling patient:
[2019-08-21] MEDS: HYDROCODONE/ACETAMOPHEN 5/325MG TAB PO PRN ×2 (16:23→21:08)
[2019-08-21] MEDS: LINEZOLID 600 MG TAB PO SCH (17:00)
[2019-08-22] MEDS: HYDROCODONE/ACETAMOPHEN 5/325MG TAB PO PRN ×3 (01:09→11:49)
[2019-08-22] MEDS: ENOXAPARIN INJ 40 MG/0.4 ML SYR SQ SCH (08:35)
[2019-08-22] MEDS: LACTOBACILLUS ACIDOPHILUS (FLORANEX) TAB PO SCH ×2 (08:41→11:49)
[2019-08-22] MEDS: LEFLUNOMIDE 10 MG TAB PO SCH (08:42)
[2019-08-22] MEDS: CALCIUM 600MG + VIT D 400 IU TAB PO SCH (08:42)
[2019-08-22] MEDS: POTASSIUM CHLORIDE 20 MEQ TABCR PO SCH ×2 (08:43→13:51)
[2019-08-22] MEDS: CEROVITE ADV FORMULA TAB PO SCH (08:43)
[2019-08-22] MEDS: PANTOprazole 40 MG TAB PO SCH (08:43)
[2019-08-22] MEDS: FOLIC ACID 1 MG TAB PO SCH (08:43)
[2019-08-22] MEDS: TRIAMTERENE/HCTZ 37.5/25MG CAP PO SCH (08:43)
[2019-08-22] MEDS: LINEZOLID 600 MG TAB PO SCH (08:44)
[2019-08-22] MEDS ORDERED: DULOXETINE HCL 30 MG CAP PO SCH ×2 (09:00)
--- NOTE | 2019-08-22 10:48 | Discharge Summary ---
Date of Service August 22, 2019 Admission HPI Per Admitting Provider 69 y/o female presented to the ED with left lower leg pain and redness. She reports that a week prior, she was admitted to [facility] with epigastric pain and also LLE cellulitis. She was found to have multiple duodenal ulcers and was started on pantoprazole (to which she has already noticed improvement). The cellulitis was, according to daughter, treated with IV Zosyn and IV Vanco. Upon discharge, the patient noted improved swelling and pain in the leg, but not improvement in redness. She was treated as outpatient with clindamycin and has noticed even further increase and erythema and sharp stabbing/burning pain. No F/C, cough, SOB, chest pain, N/V, or lightheadedness. She does have chronic intermittent loose stools to which there has been no change. Principal Diagnosis lower extremity cellulitis Discharge Exam Constitutional WD/WN, vitals as above Respiratory normal respiratory effort, lungs clear to auscultation Cardiovascular RRR, no murmur, no edema Gastrointestinal (Abdomen) normal bowel sounds, soft, nontender, no hepatosplenomegaly Musculoskeletal no cyanosis or clubbing, extremities motor strength 5/5 Skin left leg lower extremity erythema - improving Neurologic moves all extremities and awake Psychiatric A+Ox3, euthymic affect Discharge Data Allergies Allergy/AdvReac Type Severity Reaction Status Date / Time Sulfa (Sulfonamide Allergy Severe Rash and Unverified 08/13/19 17:58 Antibiotics) extremity swelling codeine AdvReac Severe Nausea Unverified 08/13/19 17:59 adhesive AdvReac Intermediate Rash Unverified 08/13/19 17:59 Consultations 08/13/19 19:04 ED Decision to Admit Stat 08/13/19 23:53 Consult Infectious Diseases Routine 08/16/19 08:15 Consult Hematology Routine Ordered Studies 08/13/19 16:58 CT tib/fib LT w con Stat Hospital Course (1) Cellulitis of left leg: Appreciate infectious diseases consult and recommendations. Discussed with ID - patient is healing very slowly and may require more than 10 days abx. Logistically she is unable to do outpatient IV abx. Will change daptomycin to oral linezolid for at least another weak. Today is day #9 of abx Discussed with pharmacy - will taper duloxetine down and then dc to allow for linezolid as they are both serotenergic medications. Duloxetine decreased from 60 mg to 30 mg for 5-7 days and then dc until linezolid is complete. ESR > 90, CRP is trending down Continue Pain Management - dc morphine - Ev[place] 5/325 q4h - patient understands that she should hold her medical marijuana while using [place] for pain relief at home (2) Thrombocytosis: Appreciate hematology oncology recommendations. Given iron sucrose [address] Masters recommendation 08/18 Patient will see as an outpatient in a week or 2 to discuss SPEP to rule out possible an underlying myeloma. SPEP result pending. (3) Failure of outpatient treatment: Patient had IV Zosyn and IV Vanco at [facility] Also she failed oral Clindamycin. (4) Immunocompromised patient: Patient takes Arava and Benlysta (5) Lupus (systemic lupus erythematosus): Stable at this point (6) HTN (hypertension): Continue triamterene/HCTZ (7) Duodenal ulcer: Continue pantoprazole Continue Regular diet (8) Elevated alkaline phosphatase level: Has been steady while inpatient - 223 today - patient to follow up with her pcp, all other liver function normal (9) DVT prophylaxis: enoxaparin Total Time Total Time Spent Total Time Spent (In Minutes): > 30 minutes Discharge Plan Discharge Items Patient Disposition: Home - Self-Care Reason For Visit: CELLULITIS LLE Discharge Diagnosis: Cellulitis LLE Activity: Resume your previous activity Activity Comment: gradually as tolerated Non-emergency contact: Primary Care Provider Call non-emergency contact if: you have any medication questions and your symptoms worsen Follow-up/Referrals: Parish Hinkle MD [Physician] - 08/28/19 1:30 pm (Please, follow up at [facility] Infectious Disease Office with Dr. Parish Hinkle on MondayAugust 28 at 1:45 pm (arrive 1:30 pm). *The office is located in [address] of [facility], [facility]. If you need to change this appointment, call the office at [phone].) John Masters V, [Physician] - (Please, follow up with Dr. John Masters (cancer genetic counselor) regarding treatment for anemia. *A nurse from his office will call you with the appointment information. The office is located in the rear of this hospital. Park BEHIND the hospital in [address] and enter via [facility] [address]. If you have any questions, call his office at [phone].) Kanika Bernard [Primary Care Provider] - 08/27/19 3:00 pm (Please, follow up at Dr. Rudd's office with Kanika GONZALEZ on MondayAugust 27 at 3:00 pm. *IF you need to change this appointment, call their office at [phone].) Diet: Regular Addtl Attending Provider Instructions: Cellulitis of left leg: - You received 7 days of daptomycin IV and have now been transitioned to Linezolid by mouth which you will continue for at least a week. You will follow up with Infectious Disease in a week to decide if a longer duration of therapy is necessary - You will taper your duloxetine down and then discontinue it to allow for taking the Linezolid as they are both serotenergic medications. Your duloxetine was decreased from 60 mg to 30 mg. Take 4 more days of the duloxetine and then discontinue. When you have completed your linezolid regimen you should discuss resuming the duloxetine with your doctor. - There are certain foods you will need to avoid while taking Linezolid. A printout of these foods has been provided - Hold your medical marijuana while taking the hydrocodone pain medication to avoid oversedation - You can take over the counter acetaminophen as well as the hydrocodone- acetaminophen. You should not take more than 3000 mg of acetaminophen total in 24 hours - please check your blood pressure daily. If you are seeing it become elevated notify your doctor right away. Elevated blood pressure may be a sign of a side effect of the Linezolid that will need to be addressed immediately Thrombocytosis (elevated platelet count) and anemia: - You were given iron sucrose [address] Masters's recommendation on 08/18 - You will follow up with Dr. Masters outpatient concerning results of your SPEP blood work Duodenal ulcer: - Continue pantoprazole. You should avoid medications that are irritating to the lining of your intestine such as aspirin, Excedrin, and NSAIDs such as ibuprofen and Aleve Elevated Alkaline phosphatase - please follow up on this level with your primary care provider Pending Studies at Discharge: Yes Studies:: SPEP blood work Stand-Alone Forms: [facility], Opioid Pain Management Medications and DC Order Prescriptions: New linezolid 600 mg Tablet 600 mg PO BID Qty: 14 RF: 0 duloxetine 30 mg capsule,delayed release(DR/EC) 30 mg PO DAILY Qty: 4 RF: 0 hydrocodone-acetaminophen 5-325 mg tablet 1 tab PO Q4H PRN (Reason: pain) Qty: 20 RF: 0 Continued clindamycin HCl 300 mg capsule 300 mg PO TID RF: 0 leflunomide [Arava] 20 mg Tablet 20 mg PO QAM RF: 0 triamterene-hydrochlorothiazid 37.5-25 mg capsule 1 cap PO QAM RF: 0 potassium chloride 20 mEq tablet,ER particles/crystals 20 meq PO TID RF: 0 pantoprazole 40 mg tablet,delayed release (DR/EC) 40 mg PO QAM RF: 0 folic acid 1 mg Tablet 3 mg PO QAM RF: 0 calcium carbonate-vitamin D3 [Calcium 600 + D(3)] 600 mg(1,500mg) -400 unit Tablet 1 tab PO QAM RF: 0 Centrum Silver Women 8 mg iron-400 mcg-300 mcg Tablet 1 tab PO DAILY RF: 0 melatonin 10 mg Tablet 10 mg PO HS RF: 0 Benlysta 200 mg/mL Syringe 0 mg SUBCUT Q4WK RF: 0 Discontinued Excedrin Migraine 250-250-65 mg Tablet 2 tab PO Q6H PRN (Reason: Headache) RF: 0 duloxetine 60 mg capsule,delayed release(DR/EC) 60 mg PO QAM RF: 0 Medical Marijuana 1 tab sublingual DAILY PRN (Reason: Pain) RF: 0 Discharge Orders: Discharge Order (Routine); Ordered 08/22/19 Ordered By: Catia Galvez/Other Patient Handouts: DVT Prevent, Linezolid Oral tablet Admission Data Admit Date/Time: 08/13/19 21:28 Attending Provider: Justo Lenz Admit Provider: Bryan Mendoza Primary Care Provider: Kanika Bernard Other Providers: Cherie Pena ; Nidhi Godinez ; Bryan Mendoza ; John Masters V Other Interventions: Discharge Summary Assessment (RN) Last Done: 08/22/19 12:10 DC Date/Time DO NOT enter until pt leaves facility: 08/22/19 14:30 Supervising Physician Co-Signing Physician Notes I supervised Catia Prakash NP on this patient's care. I examined the patient today independently of her. I discussed the plan of care with her with the plan being as written in her note except for any following changes/exceptions: None. Leg still painful, but improving. Will continue abx and follow up with PCP.
== END 2019-08-22 14:30 | disposition home or self-care (01) | DRG 603 ==
LOC: ED 15:56 → 3W 21:28 → SUATTDRO 21:28 → 3W 23:25